=== PATIENT | female | born 1950 | race Caucasian/White ===

== ENCOUNTER 2022-06-06 12:48 | Inpatient (IN) | payer MEDICARE, MEDICAID, SELFPAY ==
--- NOTE | ~2022-06-06 | CT_ITS ---
EXAMINATION: CT HEAD WITHOUT CONTRAST CLINICAL INFORMATION: Altered mental status. COMPARISON: None available. TECHNIQUE: Contiguous axial imaging was performed from the skull base to vertex without intravenous administration of contrast. This CT examination was performed using dose optimization techniques as appropriate, variously including the following: *Automated exposure control. *Adjustment of mA and/or kV according to patient size (this includes techniques or standardized protocols for targeted exams where dose is matched to indication/reason for exam; i.e. extremities or head). *Use of iterative reconstruction technique. DLP: 654 mGy-cm FINDINGS: There is no evidence of acute intracranial hemorrhage or edematous territorial infarction. Chavez-white matter differentiation is preserved. A few foci of hypoattenuation in the periventricular and deep white matter are consistent with mild microangiopathy. Proportional prominence of the ventricles and sulcal spaces without evidence of obstructive hydrocephalus. No abnormal mass effect or midline shift. No extra-axial fluid collections. No acute soft tissue or osseous abnormalities. Small (0.7 cm) osteoma along the outer table of the high frontal bone. Mild mucosal thickening of the paranasal sinuses. Moderate leftward nasal septal deviation. The mastoid air cells and middle ear cavities are clear. Bilateral lens extractions. CT/CT head/brain wo IV con IMPRESSION: 1. No evidence of acute intracranial hemorrhage or edematous territorial infarction. 2. Mild underlying microangiopathy and generalized cerebral volume loss.
--- NOTE | ~2022-06-06 | US_ITS ---
EXAMINATION: US VENOUS ULTRASOUND WITH DOPPLER LOWER EXTREMITY, BILATERAL CLINICAL INFORMATION: Bilateral lower extremity swelling. COMPARISON: None TECHNIQUE: Ultrasound of the deep veins is performed from the hip to the calf with compression sonography and color and pulse Doppler assessment. Spectral analysis with color-flow imaging is performed. FINDINGS: RIGHT: There is normal venous compression and respiratory variation and augmented flow. The visualized common femoral vein, superficial femoral vein, profunda femoral vein, popliteal vein, and the trifurcation region shows no evidence of deep venous thrombosis. LEFT: There is normal venous compression and respiratory variation and augmented flow. The visualized common femoral vein, superficial femoral vein, profunda femoral vein, popliteal vein, and the trifurcation region shows no evidence of deep venous thrombosis. If the patient's symptoms persist, followup ultrasound in 5 days 7 days might be of value to exclude proximal propagation from a non-visualized calf vein. US/US venous duplex LE BI IMPRESSION: No DVT demonstrated in the bilateral lower extremities.
--- OUTSIDE RECORDS SUMMARY | 2022-06-06 13:25 | XMS_ITS | Continuity of Care Document ---
:1950 Author Organization [facility] Address [address] [place] [id number]- Care Team Providers Name Role Phone Danelle Husain Primary Care Physician Encounter [facility] [place] Date(s): 05/27/22 - 05/28/[address] [address]- Encounter Diagnosis Dementia, old age (Final) - 05/27/22 Dementia, old age (Final) - 05/27/22 Discharge Disposition: A-D/C Home Attending Physician: Mayelin Castle MD Admitting Physician: Mayelin Castle MD Referring Physician: Not on Staff, Referring MD Allergies, Adverse Reactions, Alerts Substance Reaction Severity Status morphine Active Red Dye1 Active 1Red foods Medications Amlodipine = 10 mg, By Mouth, Daily, 0 Refills, Maintenance, 05/07/22 19:30:00 EDT, Partial fill upon patient request if the prescription is for a schedule II opioid drug. Start Date: 05/07/22 Status: OrderedamLODIPine 10 mg oral tablet 10 mg, Tablet, By Mouth, 05/28/22 9:00:00 EDT Start Date: 05/28/22 Stop Date: 05/28/22 Status: Completedatorvastatin 80 mg oral tablet 1 tablet = 80 mg, By Mouth, Daily at bedtime, 0 Refills, Maintenance, 05/07/22 19:31:00 EDT, Partialfill upon patient request if the prescription is for a schedule II opioid drug. Start Date: 05/07/22 Status: Orderedcarvedilol 6.25 mg oral tablet 6.25 mg, 1, tablet, By Mouth, 2 times a day, # 60 tablet, Refills 0, Maintenance, 05/07/22 19:31:00 EDT, Partial fill upon patient request if the prescription is for a schedule II opioid drug. Start Date: 05/07/22 Status: Orderedcarvedilol 6.25 mg oral tablet 6.25 mg, Tablet, By Mouth, 05/28/22 9:00:00 EDT Start Date: 05/28/22 Stop Date: 05/28/22 Status: Completedcephalexin monohydrate 500 mg oral capsule 1 capsule = 500 mg, By Mouth, Every 12 hours, # 10 capsule, 0 Refills, Maintenance, 05/07/22 21:20:00 EDT, Capsule, [facility]/pharmacy #[id number], Partial fill upon patient request if the prescription is for a schedule II opioid drug., 155, cm, 05/07/22 20:58:00... Start Date: 05/07/22 Stop Date: 05/12/22 Status: Ordereddapagliflozin 10 mg oral tablet 1 tablet = 10 mg, By Mouth, Daily, # 30 tablet, 0 Refills, Maintenance, 05/07/22 19:31:00 EDT, Tablet, Partial fill upon patient request if the prescription is for a schedule II opioid drug. Start Date: 05/07/22 Status: OrderedEsomeprazole 40 mg, Daily, Refills 0, Maintenance, 05/07/22 19:34:00 EDT, Partial fill upon patient request if the prescription is for a schedule II opioid drug. Start Date: 05/07/22 Status: OrderedGabapentin = 300 mg, By Mouth, 2 times a day, 0 Refills, Maintenance, 05/07/22 19:34:00 EDT, Partial fill upon patient request if the prescription is for a schedule II opioid drug. Start Date: 05/07/22 Status: Orderedlisinopril 2.5 mg oral tablet 2.5 mg, 1, tablet, By Mouth, Daily, # 30 tablet, Refills 0, Maintenance, 05/07/22 19:34:00 EDT, Partial fill upon patient request if the prescription is for a schedule II opioid drug. Start Date: 05/07/22 Status: Orderedlisinopril 5 mg oral tablet 2.5 mg, Tablet, By Mouth, 05/28/22 9:00:00 EDT Start Date: 05/28/22 Stop Date: 05/28/22 Status: Completedmemantine 10 mg oral tablet 1 tablet = 10 mg, By Mouth, Daily, # 30 tablet, 0 Refills, Maintenance, 05/07/22 19:30:00 EDT, Tablet, Partial fill upon patient request if the prescription is for a schedule II opioid drug. Start Date: 05/07/22 Status: OrderedOzempic (1 mg dose) 4 mg/3 mL subcutaneous solution INJECT 1MG UNDER THE SKIN ONCE A WEEK. Start Date: 05/28/22 Status: OrderedOzempic (1 mg dose) 4 mg/3 mL subcutaneous solution = 1 mg, Subcutaneous Infusion, Every week, # 3 mL, 3 Refills, Maintenance, 05/28/22 17:32:00 EDT, [facility]/pharmacy #[id number], Partial fill upon patient request if the prescription is for a schedule II opioid drug., 155, cm, 05/28/22 15:20:00 EDT, Height, 60.8... Start Date: 05/28/22 Status: OrderedVicodin ES By Mouth, Every 8 hours, PRN Pain , Severe, 0 Refills, Maintenance, 05/07/22 19:33:00 EDT, Partial fill upon patient request if the prescription is for a schedule II opioid drug. Start Date: 05/07/22 Status: Ordered Vital Signs Most recent to oldest 1 2 3 4 [Reference Range]: Oxygen Saturation 100 % 100 % 98 % [94-100 %] (05/28/22 12:52 PM) (05/28/22 7:54 AM) (05/28/22 5:45 AM) Pulse Rate [55-90 bpm] 55 bpm 55 bpm 56 bpm (05/28/22 12:52 PM) (05/28/22 8:56 AM) (05/28/22 7:54 AM) Blood Pressure 111/54 mm Hg 124/55 mm Hg 124/55 mm Hg 124/55 mm Hg [90-138/55-84 mm Hg] (05/28/22 12:52 PM) (05/28/22 8:56 AM) (05/28/22 8:55 AM) (05/28/22 8:55 AM) Respiratory Rate [16-30 16 br/min 18 br/min 16 br/min br/min] (05/28/22 12:52 PM) (05/28/22 7:54 AM) (05/28/22 5:45 AM) Temperature [96.8-100.4 97.8 DegF 98.1 DegF 98.2 DegF DegF] (05/28/22 12:52 PM) (05/28/22 7:54 AM) (05/28/22 5:45 AM) Mode of Delivery Room air Room air Room air (Oxygen) (05/28/22 12:52 PM) (05/28/22 7:54 AM) (05/28/22 5:45 AM) Blood pressure sites Arm, left Arm, left Arm, left (05/28/22 12:52 PM) (05/28/22 7:54 AM) (05/28/22 5:45 AM) Temperature Route Oral Oral Oral (05/28/22 12:52 PM) (05/28/22 7:54 AM) (05/28/22 5:45 AM) Social History Social History Type Response Smoking Status 10 or more cigarettes (1/2 p ack or more)/day in last 30 days entered on: 05/07/22 Sex Patient Care team information PersonnelName: Danelle Husain Address: Address: [address] [place] [id number]
--- OUTSIDE RECORDS SUMMARY | 2022-06-06 13:25 | XMS_ITS | Continuity of Care Document ---
:1950 Author Organization [facility] Address [address] [place] [id number]- Care Team Providers Name Role Phone Not on Staff, PCP Primary Care Physician Unavailable Encounter [facility] [place] Date(s): 05/07/22 - 05/07/[address] [address]- Discharge Disposition: A-D/C Walkout Attending Physician: Not on Staff, Attending MD Admitting Physician: Not on Staff, Admitting MD Referring Physician: Not on Staff, Referring MD Allergies, Adverse Reactions, Alerts Substance Reaction Severity Status morphine Active Medications Amlodipine = 10 mg, By Mouth, Daily, 0 Refills, Maintenance, 05/07/22 19:30:00 EDT, Partial fill upon patient request if the prescription is for a schedule II opioid drug. Start Date: 05/07/22 Status: Orderedatorvastatin 80 mg oral tablet 1 tablet = [...] II opioid drug. Start Date: 05/07/22 Status: Orderedcephalexin monohydrate 500 mg oral capsule 1 capsule = 500 mg, By Mouth, Every 12 hours, # 10 capsule, 0 Refills, Maintenance, 05/07/22 21:20:00 EDT, Capsule, [facility]/pharmacy #[id number], Partial fill upon patient request if [...] II opioid drug. Start Date: 05/07/22 Status: Orderedmemantine 10 mg oral tablet 1 tablet = 10 mg, By Mouth, Daily, # 30 tablet, 0 Refills, Maintenance, 05/07/22 19:30:00 EDT, Tablet, Partial fill upon patient request if the prescription is for a schedule II opioid drug. Start Date: 05/07/22 Status: OrderedVicodin ES By Mouth, Every 8 hours, PRN Pain , Severe, 0 Refills, Maintenance, 05/07/22 19:33:00 EDT, Partial fill upon patient request if the prescription is for a schedule II opioid drug. Start Date: 05/07/22 Status: Ordered Vital Signs Most recent to oldest [Reference Range]: 1 2 Height 155 cm (05/07/22 11:46 AM) Weight 60.5 kg (05/07/22 11:46 AM) Oxygen Saturation [94-100 %] 100 % 99 % (05/07/22 11:46 AM) (05/07/22 11:32 AM) Pulse Rate [55-90 bpm] 78 bpm 72 bpm (05/07/22 11:46 AM) (05/07/22 11:32 AM) Blood Pressure [90-138/55-84 mm Hg] 130/65 mm Hg (05/07/22 11:46 AM) Respiratory Rate [16-30 br/min] 17 br/min (05/07/22 11:46 AM) Temperature [96.8-100.4 DegF] 98.7 DegF (05/07/22 11:46 AM) Mode of Delivery (Oxygen) Room air Room air (05/07/22 11:46 AM) (05/07/22 11:32 AM) Blood pressure sites Arm, left (05/07/22 11:46 AM) Temperature Route Oral (05/07/22 11:46 AM) Dry Weight 60.5 kg (05/07/22 11:46 AM) Social History Social History Type Response Smoking Status 10 or more cigarettes (1/2 p ack or more)/day in last 30 days entered on: 05/07/22 Sex Care Team PersonnelName: Not on Staff, PCP
--- OUTSIDE RECORDS SUMMARY | 2022-06-06 13:25 | XMS_ITS | Continuity of Care Document ---
:1950 Author [address] [facility] Address [address] [place] [address]- Care Team Providers Name Role Phone Danelle Husain Primary Care Physician Encounter [facility] [place] Date(s): 05/03/22 - 06/02/[address] [facility] [address] [place] [id number]- Allergies, Adverse Reactions, Alerts Substance Reaction Severity Status morphine Active Red Dye1 Active 1Red foods Medications Amlodipine = 10 mg, By Mouth, Daily, 0 Refills, Maintenance, 05/07/22 19:30:00 EDT, Partial fill upon patient request if the prescription is for a schedule II opioid drug. Start Date: 05/07/22 Status: OrderedamLODIPine 10 mg oral tablet 1 tablet = 10 mg, By Mouth, Daily, TAKE ONE (1) TABLET(S) BY MOUTH ONCE A DAY. Start Date: 05/29/22 Status: Orderedatorvastatin 80 mg oral tablet 1 [...] tablet, By Mouth, 2 times a day, TAKE ONE (1) TABLET(S) BY MOUTH TWICE A DAY WITH FOOD. Start Date: 05/29/22 Status: Orderedcephalexin monohydrate 500 mg oral capsule 1 capsule = 500 mg, By Mouth, Every 12 hours, # 10 capsule, 0 Refills, Maintenance, 05/07/22 21:20:00 EDT, Capsule, [facility]/pharmacy #[id number], Partial fill upon patient request if [...] II opioid drug. Start Date: 05/07/22 Status: Orderedesomeprazole 40 mg oral enteric coated capsule 1 capsule = 40 mg, By Mouth, Daily, TAKE ONE (1) CAPSULE(S) BY MOUTH ONCE A DAY FOR STOMACH. Start Date: 05/29/22 Status: OrderedFarxiga 10 mg oral tablet 1 tablet = 10 mg, By Mouth, Daily, TAKE ONE (1) TABLET(S) BY MOUTH ONCE A DAY. Start Date: 05/29/22 Status: OrderedGabapentin = 300 mg, By Mouth, 2 times a day, 0 Refills, Maintenance, 05/07/22 19:34:00 EDT, Partial fill upon patient request if the prescription is for a schedule II opioid drug. Start Date: 05/07/22 Status: Orderedgabapentin 300 mg oral capsule 300 mg, 1, capsule, By Mouth, 2 times a day, TAKE ONE (1) CAPSULE(S) BY MOUTH TWICE A DAY DIRECTED. Start Date: 05/29/22 Status: Orderedlisinopril 2.5 mg oral tablet 2.5 mg, 1, tablet, By Mouth, Daily, # 30 tablet, Refills 0, Maintenance, 05/07/22 19:34:00 EDT, Partial fill upon patient request if the prescription is for a schedule II opioid drug. Start Date: 05/07/22 Status: Orderedlisinopril 2.5 mg oral tablet 2.5 mg, 1, tablet, By Mouth, Daily, TAKE ONE (1) TABLET(S) BY MOUTH ONCE A DAY. Start Date: 05/29/22 Status: Orderedmemantine 10 mg oral tablet 1 tablet = 10 mg, By Mouth, Daily, # 30 tablet, 0 Refills, Maintenance, 05/07/22 19:30:00 EDT, Tablet, Partial fill upon patient request if the prescription is for a schedule II opioid drug. Start Date: 05/07/22 Status: Orderedmemantine 10 mg oral tablet 1 tablet = 10 mg, By Mouth, Daily, TAKE ONE (1) TABLET(S) BY MOUTH ONCE A DAY. Start Date: 05/29/22 Status: OrderedOzempic (1 mg dose) 4 mg/3 mL subcutaneous solution INJECT 1MG UNDER THE SKIN ONCE A WEEK. Start Date: 05/28/22 Status: OrderedOzempic (1 mg dose) 4 mg/3 mL subcutaneous solution = 1 mg, Subcutaneous Infusion, Every week, # 3 mL, 3 Refills, Maintenance, 05/28/22 17:32:00 EDT, [facility]/pharmacy #[id number], Partial fill upon patient request if [...] opioid drug. Start Date: 05/07/22 Status: Ordered Social History Social History Type Response Smoking Status 10 or more cigarettes (1/2 p ack or more)/day in last 30 days entered on: 05/07/22 Sex Patient Care team information PersonnelName: Danelle Husain Address: Address: [address] [place] [address]
[2022-06-06 13:30] VITALS: BP 102/52; PULSE 55; RESP 18; TEMP 36.9; O2SAT 97
[2022-06-06 14:00] VITALS: BMI 25.3
--- NOTE | 2022-06-06 16:53 | P.CONHOSP_ITS ---
History of Present Illness Data of Consult Service Date: 06/06/22 Requesting physician: Stevan Soriano Primary Care Provider: Unknown Physician HPI Reason for consult: medical h&p 71-year-old female with history of hypertension and diet-controlled type 2 diabetes admitted to Psychiatry for supposedly dementia and delusions. Her only complaint today is sadness being on the unit as she does not feel she warrants admission. She also reports chronic pain in the left leg status post low back surgery in 2013. Describes intermittent pain for which she uses ibuprofen and Tylenol at home with moderate relief. She ambulates with a walker at baseline. Review of Systems Review of Systems: General: No fevers, malaise, unintentional weight loss Cardiovascular: No chest pain, palpitations, or leg edema Respiratory: No shortness of breath, wheezing, cough GI: No abdominal pain, nausea, vomiting, diarrhea, constipation, melena, hematochezia : No dysuria, hematuria, increased frequency MSK: +pain LLE Neuro: No headaches, weakness, paresthesias Skin: No rashes or lesions PMFSH Medical History (Updated 06/06/22 @ 16:56 by ISSA Byrnes) Chronic pain of left lower extremity Diet-controlled type 2 diabetes mellitus Hypertension Family History (Updated 06/06/22 @ 16:56 by ISSA Byrnes) Brother Diabetes Cancer Mother Diabetes Surgical History (Updated 06/06/22 @ 16:56 by ISSA Byrnes) History of lumbar surgery Social History Household Members: Family Housing: House Do you presently have visiting nurse or other home services: No ( I was but my daughter sent her home and I had no one to walk with. ) Patient Tobacco Use Status: Current someday Tobacco user Tobacco use type: Cigarette Cigarettes Per Day: 2 Years Smoked: 58 Smoked in Last 30 Days: Yes e-Cigarette/Vaping Use: Never Used Patient Interested in Nicotine Replacement: No Patient Given Instructions on How to Stop Smoking: No (Will be referred to respiratory.) Use of substances other than those prescribed or required for medical reasons: No Currently Displaying Signs/Symptoms of Drug Intoxication Withdrawal: No Any prior treatment program specific to substance use: No Have you been hit, kicked, punched, or otherwise hurt by someone within the past year? If so, by whom?: No Do you feel safe in your current relationship?: No Current Relationship Is there a partner from a previous relationship who is making you feel unsafe now?: No Are you made to feel afraid or neglected: No Spiritual Healthcare Practices: no Mosque Healthcare Practices: no Cultural Healthcare Practices: no Advance Directives: Yes Advance Directives Information Provided: Yes Advance Directives on File: No Do you have thoughts of harming others: None Do you have a plan to hurt others: No Plan Recently lost weight without trying: No Eating poorly because of decreased appetite: No Nutrition Risks: No Nutritional Risk Patient : No : No Poor oral hygiene: No Meds Allergies Allergy/AdvReac Type Severity Reaction Status Date / Time Unable to Assess Allergy Unverified 06/06/22 13:17 Active Medications: Current Medications Acetaminophen (Acetaminophen 325 Mg Tablet) 650 mg PO Q6H PRN PRN Reason: Headache/Pain Mild Scale (1-3) Al Hydroxide/Mg Hydroxide (Magnesium Hydrox/Alum Hydrox 30 Ml Oral.Susp) 30 ml PO Q6H PRN PRN Reason: Heartburn/Nausea Hydroxyzine HCl (Hydroxyzine Hcl 25 Mg Tablet) 25 mg PO Q6H PRN PRN Reason: Anxiety Magnesium Hydroxide (Milk Of Magnesia 30 Ml Oral.Susp) 30 ml PO DAILY PRN PRN Reason: Constipation Trazodone HCl (Trazodone Hcl 50 Mg Tablet) 50 mg PO BEDTIME PRN PRN Reason: Insomnia Physical Exam Vital Signs and Narrative: Vital Signs: Last Vital Signs Temp 98.5 F 06/06/22 13:30 Pulse 55 06/06/22 13:30 Resp 18 06/06/22 13:30 BP 102/52 L 06/06/22 13:30 Pulse Ox 97 06/06/22 13:30 O2 Del Method 06/06/22 13:30 BMI result Body Mass Index 25.3 Constitutional - Awake and Alert, No apparent distress Eyes - PERRLA, EOMI Cardiovascular - S1S2, RRR, No edema Respiratory - Normal lung expansion, Normal respiratory effort, No respiratory distress, CTA bilaterally Gastrointestinal - NT / ND; +BS; No rebound or guarding Extremities - no calf tenderness bilaterally, no swelling Skin - Warm/Dry Neurological - Alert & oriented x3, Lucid on exam. CN II-XII in tact, 5/5 strength BUE and BLE Psychological - Appropriate affect Assessment and Plan (1) Chronic pain of left lower extremity: Status: Acute (2) Diet-controlled type 2 diabetes mellitus: Status: Acute (3) Hypertension: Status: Acute Plan 71-year-old female with history of hypertension and diet-controlled type 2 diabetes admitted to Psychiatry for supposedly dementia and delusions with consult placed for medical H&P. 1- Dementia/delusion per ED notes from [facility] -Patient lucid on exam and affect seems appropriate. -Plan per psychiatry 9-Igun-rwcxwaopfa type 2 diabetes -A1c 5.7% in ED -Diabetic diet -POC glucose -Humalog SSI prn for hyperglycemia 3-CKD stage 3 likely secondary to diabetes -Stable. Cr 1.2, BUN 30, GFR 48 4-HTN- per [facility] ED, not on any meds -BP low normal -Follow vitals. 5-Chronic pain LLE s/p lumbar surgery 2012 -Ibuprofen or tylenol prn -Needs outpt follow up Thank you for allowing me to participate in this consult. Signing off at this time. Please do not hesitate to call for further questions.
--- NOTE | 2022-06-06 16:55 | HO.PSYADMNOT ---
HPI Date of Service: 06/06/22 Chief Complaint: Adjustment Disorders Sources of Information: patient interviewed, chart reviewed and crisis/core team assessment reviewed HPI Subjective Notes: Rothman Warning and Conditional Voluntary Narrative: The patient is a 71-year-old descent female, living with her daughter, recently moved from [place] to [place] since February 2022, currently retired, transferred from [facility] for continuation of treatment. As per the crisis report, the patient had been confused and wandering out of the home of her daughter. As per the report of crisis, she has been confused at times, with poor short term memory and disorganized. On interview, the patient reported that she has been more dysphoric since she moved out of [place] with depressed mood, anhedonia, poor sleep and anxiety. She states that she smokes tobacco and sometimes she goes for walks to calm herself. She stated that she has had verbal altercations with her daughter and finally, her daughter called crisis due to possible dementia. She adamantly denies suicidal ideation, homicidal thoughts or unsafe behaviors. She denied hector or psychosis. Past Psychiatric History: Denies Medical Evaluation Reviewed: Hospitalist Angel Luis Lizamaing [facility] Medical History Chronic pain of left lower extremity Diet-controlled type 2 diabetes mellitus Hypertension Surgical History History of lumbar surgery Family History: Denies Social History: The patient was born in [place], she has lived in [place] most of her life. She has adult children and recently she moved from [place] to [place] 3 months before. She has good social support. Substance History: Denies Trauma History: Unknown Diagnostics Vital Signs (24Hr): Vital Signs - 24 hr 06/06/22 13:30 Temperature 98.5 F Pulse Rate 55 Respiratory Rate 18 Blood Pressure 102/52 L Pulse Oximetry 97 Oxygen Delivery Method Room Air BMI result Body Mass Index 25.3 Meds/Allergies Allergies Allergies Allergy/AdvReac Type Severity Reaction Status Date / Time Unable to Assess Allergy Unverified 06/06/22 13:17 Mental Status Exam Mental Status Exam Patient Appearance: Appropriate Patient Orientation: Person and Situation Level of Consciousness: Awake Patient Behavior: Cooperative and Fatigued Mood Description: Withdrawn and Depressed Affect Description: Constricted Patient Cognition Impaired: Yes Ability to Follow Directions: Good Speech Pattern: Clear Hallucinations: None Delusions: Not Present Thought Process: Distracted and Confusion Thought Content: positive for Bethany and positive for Circumstantial Judgement: Fair Assessment & Plan Assessment & Plan (1) Diet-controlled type 2 diabetes mellitus: Status: Acute Code(s): E11.9 - Type 2 diabetes mellitus without complications (2) Hypertension: Status: Acute Code(s): I10 - Essential (primary) hypertension (3) Depression: Status: Acute Code(s): F32.A - Depression, unspecified (4) Cognitive and behavioral changes: Status: Acute Code(s): R41.89 - Other symptoms and signs involving cognitive functions and awareness; R46.89 - Other symptoms and signs involving appearance and behavior Plan The patient is an elderly female, recently moved from [place] to [place] transfer from [facility] sings she had cognitive impairment and recently feeling depressed. At this moment, we do not have collateral information but she denies active suicidal ideation or psychotic symptoms. Plan 1. Gather collateral information. 2. CBC with differential, basic metabolic panel, lipid profile, vitamin B12, folate and other medical workout. 3. Urinalysis. 4. CT scan head . 5. Start Remeron 7.5 mg p.o. q.h.s. to target dysphoria Patient educated on: diagnosis and therapeutic strategies Reason for continued inpatient stay Substantial Risk for: inability to function, rapid decompensation and med/psych decompensation
[2022-06-06 18:00] VITALS: BP 138/58; PULSE 60; RESP 18; TEMP 37.1; O2SAT 98
--- NOTE | 2022-06-06 18:18 | PC.ADMIT ---
Pt. arrived on unit 1320 accompanied by 2 automobile damage field appraiser via stretcher from [facility] for adjustment disorder. Pt. alert and oriented X 3-denies situation as presented by daughter and in crisis eval. Pt. had lived independently in [place] up until 2.5 months ago, when she moved in with her daughter locally. Per crisis eval pt. had been wandering unsafely outside of home. Ambulates independently with walker. Pleasant and cooperative with admission process, but denies any psych sx. or cognitive problems. Focuses that daughter is accusatory toward her and thinks everything she does is wrong. Denies AH/VH/SI/HI, depression or anxiety. Carries dx. of HTN, diet controlled DM, and LLE pain. Signed release of info for daughter, who came to unit entrance and was updated on admission. Daughter brought FREEMAN an medical records, which were received and copied by social work manager.
[2022-06-06] MEDS: OLANZapine 2.5 MG TABLET PO (21:36)
[2022-06-06] MEDS: Atorvastatin Calcium 80 MG TABLET PO (21:36)
[2022-06-06] MEDS: carvediloL 6.25 MG TABLET PO (21:36)
[2022-06-06] MEDS: Gabapentin 300 MG CAPSULE PO (21:37)
[2022-06-06] MEDS: traZODone HCL 50 MG TABLET PO (21:37)
[2022-06-06] MEDS: Memantine HCl 10 MG TABLET PO (21:57)
[2022-06-07 07:30] VITALS: BP 117/56; PULSE 52; RESP 17; TEMP 36.5; O2SAT 96
[2022-06-07] MEDS: Omeprazole 20 MG CAPSULE.DR PO (08:21)
[2022-06-07] MEDS: Empagliflozin 10 MG TABLET PO (08:21)
[2022-06-07] MEDS: Gabapentin 300 MG CAPSULE PO ×2 (08:22→20:26)
[2022-06-07] MEDS: carvediloL 6.25 MG TABLET PO ×2 (08:22→20:26)
[2022-06-07] MEDS: lisinopriL 2.5 MG TABLET PO (08:22)
[2022-06-07 08:24] LABS: MANUAL DIFF FLAG NO
[2022-06-07 08:33] LABS: Basophils Absolute Auto 0.1 X10*3/uL (0.0-0.2); Basophils Percent Auto 0.8 % (0-2); Eosinophils Absolute Auto 0.3 X10*3/uL (0.0-0.4); Eosinophils Percent Auto 4.3 % (0-4); Hematocrit 36.4 % (37.0-47.0); Hemoglobin 12.1 g/dl (12.0-16.0); Imm Gran Abs Auto 0.01 X10*3/uL (0.00-0.03); Imm Gran Pct Auto 0.2 % (0.0-0.4); Lymphocytes Absolute Auto 2.2 X10*3/uL (1.2-4.9); Lymphocytes Percent Auto 33.3 % (20-40); Mean Corpuscular HGB Conc 33.2 g/dl (31.0-35.0); Mean Corpuscular Hemoglobin 31.9 pg (27.0-33.0); Mean Platelet Volume 9.5 fL (9.4-12.3); Monocytes Absolute Auto 0.6 X10*3/uL (0.1-1.2); Monocytes Percent Auto 8.5 % (2-11); Neutrophils Absolute Auto 3.4 x10*3/uL (2.0-8.3); Neutrophils Percent Auto 52.9 % (45-73); Platelet Count 235 X10*3/uL (160-400); Red Blood Count 3.79 X10*6/uL (4.20-5.50); Red Cell Distribution Width 13.3 % (11.0-16.0); White Blood Count 6.5 X10*3/uL (4.8-10.8)
[2022-06-07 08:41] LABS: Estimated Average Glucose 117 mg/dL; Hemoglobin A1c % 5.7 %
[2022-06-07 09:09] LABS: Alanine Aminotransferase 18 U/L (0-31); Albumin Level 3.7 g/dL (3.5-5.0); Alkaline Phosphatase 87 U/L (39-117); Anion Gap 15 (12-20); Aspartate Amino Transferase 16 U/L (5-31); Bilirubin Total 0.3 mg/dL (0.0-1.0); Blood Urea Nitrogen 44 mg/dL (9-16); Calcium 9.2 mg/dL (8.4-10.2); Carbon Dioxide 25 mmol/L (22-29); Chloride 106 mmol/L (96-108); Cholesterol 177 mg/dL; Estimated Glomerular Filt Rate 42; Glucose Fasting 126 mg/dL (60-99); HDL Cholesterol 42 mg/dL; LDL Cholesterol Calculated 118 mg/dl; Potassium 4.5 mmol/L (3.3-5.1); Sodium 141 mmol/L (135-145); Total Protein 6.4 g/dL (6.5-8.0); Triglycerides 86 mg/dL
[2022-06-07 09:25] LABS: Thyroid Stimulating Hormone 0.59 uIU/mL (0.32-4.0)
[2022-06-07 09:54] LABS: Folate 8.3 ng/mL (> or = 4.0); Vitamin B12 386 pg/mL (200-900)
[2022-06-07] MEDS: Acetaminophen 325 MG TABLET 650 MG PO (10:29)
--- NOTE | 2022-06-07 13:52 | HO.PSYCHPN ---
Subjective Subjective Date of Service: 06/07/22 Reason For Visit: Adjustment Disorders Subjective Notes: Conditional Voluntary Interim History: The nursing staff reported the patient has being dysphoric but easily redirectable. On interview the patient denies new symptoms she complains regarding her relation with her daughter. Mental Status Exam Mental Status Exam Patient Appearance: Well Grooomed Patient Orientation: Person, Place and Situation Level of Consciousness: Awake and Appropriate Patient Behavior: Cooperative Mood Description: Withdrawn Affect Description: Constricted Patient Cognition Impaired: Yes Ability to Follow Directions: Good Speech Pattern: Clear Hallucinations: None Delusions: Not Present Thought Process: Linear Thought Content: positive for [place] Judgement: Fair Diagnostics Vital Signs (24Hr): Vital Signs - 24 hr 06/06/22 18:00 06/06/22 18:00 06/07/22 07:30 Temperature 98.7 F 98.7 F 97.7 F Pulse Rate 60 60 52 Respiratory Rate 18 18 17 Blood Pressure 138/58 L 138/58 L 117/56 L Pulse Oximetry 98 98 96 Oxygen Delivery Method Room Air Room Air Room Air BMI result Body Mass Index 25.3 Labs Results: 06/07/22 08:01 06/07/22 08:01 Labs: Laboratory Results - last 48 hr 06/07/22 06/07/22 06/07/22 08:01 08:01 08:01 WBC RBC Hgb Hct MCV MCH MCHC RDW Plt Count MPV Immature Gran % (Auto) Neut % (Auto) Lymph % (Auto) [place] % (Auto) Eos % (Auto) Baso % (Auto) Lymph # (Auto) [place] # (Auto) Eos # (Auto) Baso # (Auto) Abs Immat Gran (auto) Absolute Neuts (auto) Absolute Nucleated RBC Nucleated RBC % (auto) Sodium 141 Potassium 4.5 Chloride 106 Carbon Dioxide 25 Anion Gap 15 BUN 44 H Creatinine 1.25 Estim Creat Clear Calc 34.0 Estimated GFR 42 Fasting Glucose 126 H Estimat Average Glucose 117 Hemoglobin A1c % 5.7 Calcium 9.2 Total Bilirubin 0.3 AST 16 ALT 18 Alkaline Phosphatase 87 Total Protein 6.4 L Albumin 3.7 Triglycerides 86 Cholesterol 177 LDL Cholesterol, Calc 118 HDL Cholesterol 42 Vitamin B12 386 Folate 8.3 TSH 06/07/22 06/07/22 08:01 08:01 WBC 6.5 RBC 3.79 L Hgb 12.1 Hct 36.4 L MCV 96.0 MCH 31.9 MCHC 33.2 RDW 13.3 Plt Count 235 MPV 9.5 Immature Gran % (Auto) 0.2 Neut % (Auto) 52.9 Lymph % (Auto) 33.3 [place] % (Auto) 8.5 Eos % (Auto) 4.3 H Baso % (Auto) 0.8 Lymph # (Auto) 2.2 [place] # (Auto) 0.6 Eos # (Auto) 0.3 Baso # (Auto) 0.1 Abs Immat Gran (auto) 0.01 Absolute Neuts (auto) 3.4 Absolute Nucleated RBC 0.000 Nucleated RBC % (auto) 0.0 Sodium Potassium Chloride Carbon Dioxide Anion Gap BUN Creatinine Estim Creat Clear Calc Estimated GFR Fasting Glucose Estimat Average Glucose Hemoglobin A1c % Calcium Total Bilirubin AST ALT Alkaline Phosphatase Total Protein Albumin Triglycerides Cholesterol LDL Cholesterol, Calc HDL Cholesterol Vitamin B12 Folate TSH 0.59 Imaging Radiology Impressions: ITS Impressions Head CT 06/07/22 11:17 IMPRESSION: 1. No evidence of acute intracranial hemorrhage or edematous territorial infarction. 2. Mild underlying microangiopathy and generalized cerebral volume loss. Medications Medications Current Medications Acetaminophen (Acetaminophen 325 Mg Tablet) 650 mg PO Q6H PRN PRN Reason: Headache/Pain Mild Scale (1-3) Last Admin: 06/07/22 10:29 Dose: 650 mg Al Hydroxide/Mg Hydroxide (Magnesium Hydrox/Alum Hydrox 30 Ml Oral.Susp) 30 ml PO Q6H PRN PRN Reason: Heartburn/Nausea Atorvastatin Calcium (Atorvastatin Calcium 80 Mg Tablet) 80 mg PO BEDTIME [facility] Last Admin: 06/06/22 21:36 Dose: 80 mg Carvedilol (Carvedilol 6.25 Mg Tablet) 6.25 mg PO BID [facility] Last Admin: 06/07/22 08:22 Dose: 6.25 mg Empagliflozin (Empagliflozin 10 Mg Tablet) 10 mg PO DAILY [facility] Last Admin: 06/07/22 08:21 Dose: 10 mg Gabapentin (Gabapentin 300 Mg Capsule) 300 mg PO BID [facility] Last Admin: 06/07/22 08:22 Dose: 300 mg Hydroxyzine HCl (Hydroxyzine Hcl 25 Mg Tablet) 25 mg PO Q6H PRN PRN Reason: Anxiety Lisinopril (Lisinopril 2.5 Mg Tablet) 2.5 mg PO DAILY [facility]; Protocol Last Admin: 06/07/22 08:22 Dose: 2.5 mg Magnesium Hydroxide (Milk Of Magnesia 30 Ml Oral.Susp) 30 ml PO DAILY PRN PRN Reason: Constipation Memantine (Memantine Hcl 10 Mg Tablet) 10 mg PO BEDTIME [facility] Last Admin: 06/06/22 21:57 Dose: 10 mg Mirtazapine (Mirtazapine 7.5 Mg Tablet) 7.5 mg PO BEDTIME [facility] Olanzapine (Olanzapine 2.5 Mg Tablet) 2.5 mg PO BEDTIME [facility] Last Admin: 06/06/22 21:36 Dose: 2.5 mg Olanzapine (Olanzapine 2.5 Mg Tablet) 2.5 mg PO TID PRN PRN Reason: Agitation Omeprazole (Omeprazole 20 Mg Capsule.Dr) 20 mg PO DAILY@0630 [facility] Last Admin: 06/07/22 08:21 Dose: 20 mg Trazodone HCl (Trazodone Hcl 50 Mg Tablet) 50 mg PO BEDTIME PRN PRN Reason: Insomnia Last Admin: 06/06/22 21:37 Dose: 50 mg Allergies Allergies Allergy/AdvReac Type Severity Reaction Status Date / Time Unable to Assess Allergy Unverified 06/06/22 13:17 Assessment & Plan Assessment & Plan (1) Diet-controlled type 2 diabetes mellitus: Status: Acute Code(s): E11.9 - Type 2 diabetes mellitus without complications (2) Hypertension: Status: Acute Code(s): I10 - Essential (primary) hypertension (3) Depression: Status: Acute Code(s): F32.A - Depression, unspecified (4) Cognitive and behavioral changes: Status: Acute Code(s): R41.89 - Other symptoms and signs involving cognitive functions and awareness; R46.89 - Other symptoms and signs involving appearance and behavior Plan The patient is an elderly female, recently moved from [place] to [place] transfer from [facility] sings she had cognitive impairment and recently feeling depressed. At this moment, we do not have collateral information but she denies active suicidal ideation or psychotic symptoms. Plan 1. Gather collateral information. 2. CBC with differential, basic metabolic panel, lipid profile, vitamin B12, folate and other medical workout. 3. Urinalysis. 4. CT scan head . 5. Start Remeron 7.5 mg p.o. q.h.s. to target dysphoria I spent __20____ minutes with the patient and/or on the patient floor today, greater than?50% of which was spent counseling/coordinating care. Reason for contiued inpatient stay Substantial Risk for: inability to function, rapid decompensation and med/psych decompensation
[2022-06-07 18:00] VITALS: BP 146/62; PULSE 73; RESP 18; TEMP 36.9; O2SAT 97
[2022-06-07] MEDS: Atorvastatin Calcium 80 MG TABLET PO (20:25)
[2022-06-07] MEDS: Mirtazapine 7.5 MG TABLET PO (20:26)
[2022-06-07] MEDS: OLANZapine 2.5 MG TABLET PO (20:26)
[2022-06-07] MEDS: Memantine HCl 10 MG TABLET PO (20:26)
[2022-06-08] MEDS: Acetaminophen 325 MG TABLET 650 MG PO ×2 (01:29→14:56)
[2022-06-08] MEDS: Omeprazole 20 MG CAPSULE.DR PO (06:15)
[2022-06-08 08:30] VITALS: BP 125/60; PULSE 67; RESP 17
[2022-06-08] MEDS: lisinopriL 2.5 MG TABLET PO (09:09)
[2022-06-08] MEDS: carvediloL 6.25 MG TABLET PO ×2 (09:09→20:18)
[2022-06-08] MEDS: Gabapentin 300 MG CAPSULE PO ×2 (09:09→20:18)
[2022-06-08] MEDS: Empagliflozin 10 MG TABLET PO (09:10)
--- NOTE | 2022-06-08 12:00 | HO.PSYCHPN ---
Subjective Subjective Date of Service: 06/08/22 Reason For Visit: Adjustment Disorders Interim History: calm, cooperative. watching TV. pleasant, expressive. seems to feel it is a mistake that she is here and expects her daughter to come and take her from the hospital soon. no complaints or requests. per staff, denies depression, endorses anxiety 06/03. eating, pleasant. Mental Status Exam Mental Status Exam Patient Appearance: Well Grooomed Patient Orientation: Person, Place and Situation Level of Consciousness: Awake and Appropriate Patient Behavior: Cooperative Affect Description: Happy and Relaxed Patient Cognition Impaired: Yes Ability to Follow Directions: Good Speech Pattern: Clear Hallucinations: None Delusions: Not Present Thought Process: Linear Thought Content: positive for [place] Judgement: Fair Diagnostics Vital Signs (24Hr): Vital Signs - 24 hr 06/07/22 18:00 06/08/22 08:30 Temperature 98.4 F Pulse Rate 73 67 Respiratory Rate 18 17 Blood Pressure 146/62 H 125/60 Pulse Oximetry 97 Oxygen Delivery Method Room Air BMI result Body Mass Index 25.3 Labs Results: 06/07/22 08:01 06/07/22 08:01 Labs: Laboratory Results - last 48 hr 06/07/22 06/07/22 06/07/22 08:01 08:01 08:01 WBC RBC Hgb Hct MCV MCH MCHC RDW Plt Count MPV Immature Gran % (Auto) Neut % (Auto) Lymph % (Auto) [place] % (Auto) Eos % (Auto) Baso % (Auto) Lymph # (Auto) [place] # (Auto) Eos # (Auto) Baso # (Auto) Abs Immat Gran (auto) Absolute Neuts (auto) Absolute Nucleated RBC Nucleated RBC % (auto) Sodium 141 Potassium 4.5 Chloride 106 Carbon Dioxide 25 Anion Gap 15 BUN 44 H Creatinine 1.25 Estim Creat Clear Calc 34.0 Estimated GFR 42 Fasting Glucose 126 H Estimat Average Glucose 117 Hemoglobin A1c % 5.7 Calcium 9.2 Total Bilirubin 0.3 AST 16 ALT 18 Alkaline Phosphatase 87 Total Protein 6.4 L Albumin 3.7 Triglycerides 86 Cholesterol 177 LDL Cholesterol, Calc 118 HDL Cholesterol 42 Vitamin B12 386 Folate 8.3 TSH 06/07/22 06/07/22 08:01 08:01 WBC 6.5 RBC 3.79 L Hgb 12.1 Hct 36.4 L MCV 96.0 MCH 31.9 MCHC 33.2 RDW 13.3 Plt Count 235 MPV 9.5 Immature Gran % (Auto) 0.2 Neut % (Auto) 52.9 Lymph % (Auto) 33.3 [place] % (Auto) 8.5 Eos % (Auto) 4.3 H Baso % (Auto) 0.8 Lymph # (Auto) 2.2 [place] # (Auto) 0.6 Eos # (Auto) 0.3 Baso # (Auto) 0.1 Abs Immat Gran (auto) 0.01 Absolute Neuts (auto) 3.4 Absolute Nucleated RBC 0.000 Nucleated RBC % (auto) 0.0 Sodium Potassium Chloride Carbon Dioxide Anion Gap BUN Creatinine Estim Creat Clear Calc Estimated GFR Fasting Glucose Estimat Average Glucose Hemoglobin A1c % Calcium Total Bilirubin AST ALT Alkaline Phosphatase Total Protein Albumin Triglycerides Cholesterol LDL Cholesterol, Calc HDL Cholesterol Vitamin B12 Folate TSH 0.59 Imaging Radiology Impressions: ITS Impressions Head CT 06/07/22 11:17 IMPRESSION: 1. No evidence of acute intracranial hemorrhage or edematous territorial infarction. 2. Mild underlying microangiopathy and generalized cerebral volume loss. Medications Medications Current Medications Acetaminophen (Acetaminophen 325 Mg Tablet) 650 mg PO Q6H PRN PRN Reason: Headache/Pain Mild Scale (1-3) Last Admin: 06/08/22 01:29 Dose: 650 mg Al Hydroxide/Mg Hydroxide (Magnesium Hydrox/Alum Hydrox 30 Ml Oral.Susp) 30 ml PO Q6H PRN PRN Reason: Heartburn/Nausea Atorvastatin Calcium (Atorvastatin Calcium 80 Mg Tablet) 80 mg PO BEDTIME [facility] Last Admin: 06/07/22 20:25 Dose: 80 mg Carvedilol (Carvedilol 6.25 Mg Tablet) 6.25 mg PO BID [facility] Last Admin: 06/08/22 09:09 Dose: 6.25 mg Empagliflozin (Empagliflozin 10 Mg Tablet) 10 mg PO DAILY [facility] Last Admin: 06/08/22 09:10 Dose: 10 mg Gabapentin (Gabapentin 300 Mg Capsule) 300 mg PO BID [facility] Last Admin: 06/08/22 09:09 Dose: 300 mg Hydroxyzine HCl (Hydroxyzine Hcl 25 Mg Tablet) 25 mg PO Q6H PRN PRN Reason: Anxiety Lisinopril (Lisinopril 2.5 Mg Tablet) 2.5 mg PO DAILY [facility]; Protocol Last Admin: 06/08/22 09:09 Dose: 2.5 mg Magnesium Hydroxide (Milk Of Magnesia 30 Ml Oral.Susp) 30 ml PO DAILY PRN PRN Reason: Constipation Memantine (Memantine Hcl 10 Mg Tablet) 10 mg PO BEDTIME [facility] Last Admin: 06/07/22 20:26 Dose: 10 mg Mirtazapine (Mirtazapine 7.5 Mg Tablet) 7.5 mg PO BEDTIME [facility] Last Admin: 06/07/22 20:26 Dose: 7.5 mg Olanzapine (Olanzapine 2.5 Mg Tablet) 2.5 mg PO BEDTIME [facility] Last Admin: 06/07/22 20:26 Dose: 2.5 mg Olanzapine (Olanzapine 2.5 Mg Tablet) 2.5 mg PO TID PRN PRN Reason: Agitation Omeprazole (Omeprazole 20 Mg Capsule.Dr) 20 mg PO DAILY@0630 [facility] Last Admin: 06/08/22 06:15 Dose: 20 mg Trazodone HCl (Trazodone Hcl 50 Mg Tablet) 50 mg PO BEDTIME PRN PRN Reason: Insomnia Last Admin: 06/06/22 21:37 Dose: 50 mg Allergies Allergies Allergy/AdvReac Type Severity Reaction Status Date / Time Unable to Assess Allergy Unverified 06/06/22 13:17 Assessment & Plan Assessment & Plan (1) Diet-controlled type 2 diabetes mellitus: Status: Acute Code(s): E11.9 - Type 2 diabetes mellitus without complications (2) Hypertension: Status: Acute Code(s): I10 - Essential (primary) hypertension (3) Depression: Status: Acute Code(s): F32.A - Depression, unspecified (4) Cognitive and behavioral changes: Status: Acute Code(s): R41.89 - Other symptoms and signs involving cognitive functions and awareness; R46.89 - Other symptoms and signs involving appearance and behavior Plan The patient is an elderly female, recently moved from [place] to [place] transfer from [facility] sings she had cognitive impairment and recently feeling depressed. At this moment, we do not have collateral information but she denies active suicidal ideation or psychotic symptoms. Plan 1. Gather collateral information. 2. CBC with differential, basic metabolic panel, lipid profile, vitamin B12, folate and other medical workout. 3. Urinalysis. 4. CT scan head . 5. Start Remeron 7.5 mg p.o. q.h.s. to target dysphoria 06/08: appears well, full range of affect, denies anything of much concern. hoping to leave with her daughter soon. continue current mgmt. I spent ___15___ minutes with the patient and/or on the patient floor today, greater than?50% of which was spent counseling/coordinating care. Reason for contiued inpatient stay Substantial Risk for: harm to self and inability to function
[2022-06-08 18:00] VITALS: BP 155/69; PULSE 63; RESP 17; TEMP 36.9; O2SAT 97
[2022-06-08] MEDS: Mirtazapine 7.5 MG TABLET PO (20:18)
[2022-06-08] MEDS: Memantine HCl 10 MG TABLET PO (20:18)
[2022-06-08] MEDS: Atorvastatin Calcium 80 MG TABLET PO (20:18)
[2022-06-08] MEDS: OLANZapine 2.5 MG TABLET PO (20:20)
[2022-06-08] MEDS: Magnesium Hydrox/Alum Hydrox 30 ML ORAL.SUSP PO (22:13)
[2022-06-09] MEDS: Acetaminophen 325 MG TABLET 650 MG PO ×3 (04:31→21:26)
[2022-06-09] MEDS: Omeprazole 20 MG CAPSULE.DR PO (05:31)
[2022-06-09 06:00] VITALS: BP 124/60; PULSE 57; RESP 18; TEMP 36.2; O2SAT 97
[2022-06-09] MEDS: Empagliflozin 10 MG TABLET PO (09:04)
[2022-06-09] MEDS: Gabapentin 300 MG CAPSULE PO ×2 (09:04→20:05)
[2022-06-09] MEDS: carvediloL 6.25 MG TABLET PO ×2 (09:04→20:05)
[2022-06-09] MEDS: lisinopriL 2.5 MG TABLET PO (09:04)
--- NOTE | 2022-06-09 11:37 | HO.PSYCHPN ---
Subjective Subjective Date of Service: 06/09/22 Reason For Visit: Adjustment Disorders Interim History: voluble, loquacious. full range of affect, nearly teary a couple of times talking about not wanting to be in the hospital and her daughter's having put her here and not taking her home yesterday. tells a very circuitous and overly detailed account of the reason she was admitted to the hospital. per staff, pleasant, cooperative. slept 6 hours overnight. poor insight into her condition. Mental Status Exam Mental Status Exam Patient Appearance: Well Grooomed Patient Orientation: Person, Place and Situation Level of Consciousness: Awake and Appropriate Patient Behavior: Cooperative Affect Description: Happy and Relaxed Patient Cognition Impaired: Yes Ability to Follow Directions: Good Speech Pattern: Clear Hallucinations: None Delusions: Not Present Thought Process: Linear Thought Content: positive for [place] Judgement: Fair Diagnostics Vital Signs (24Hr): Vital Signs - 24 hr 06/08/22 18:00 06/09/22 06:00 Temperature 98.4 F 97.1 F Pulse Rate 63 57 Respiratory Rate 17 18 Blood Pressure 155/69 H 124/60 Pulse Oximetry 97 97 Oxygen Delivery Method Room Air Room Air BMI result Body Mass Index 25.3 Labs Results: 06/07/22 08:01 06/07/22 08:01 Imaging Radiology Impressions: ITS Impressions Head CT 06/07/22 11:17 IMPRESSION: 1. No evidence of acute intracranial hemorrhage or edematous territorial infarction. 2. Mild underlying microangiopathy and generalized cerebral volume loss. Medications Medications Current Medications Acetaminophen (Acetaminophen 325 Mg Tablet) 650 mg PO Q6H PRN PRN Reason: Headache/Pain Mild Scale (1-3) Last Admin: 06/09/22 04:31 Dose: 650 mg Al Hydroxide/Mg Hydroxide (Magnesium Hydrox/Alum Hydrox 30 Ml Oral.Susp) 30 ml PO Q6H PRN PRN Reason: Heartburn/Nausea Last Admin: 06/08/22 22:13 Dose: 30 ml Atorvastatin Calcium (Atorvastatin Calcium 80 Mg Tablet) 80 mg PO BEDTIME [facility] Last Admin: 06/08/22 20:18 Dose: 80 mg Carvedilol (Carvedilol 6.25 Mg Tablet) 6.25 mg PO BID [facility] Last Admin: 06/09/22 09:04 Dose: 6.25 mg Empagliflozin (Empagliflozin 10 Mg Tablet) 10 mg PO DAILY [facility] Last Admin: 06/09/22 09:04 Dose: 10 mg Gabapentin (Gabapentin 300 Mg Capsule) 300 mg PO BID [facility] Last Admin: 06/09/22 09:04 Dose: 300 mg Hydroxyzine HCl (Hydroxyzine Hcl 25 Mg Tablet) 25 mg PO Q6H PRN PRN Reason: Anxiety Lisinopril (Lisinopril 2.5 Mg Tablet) 2.5 mg PO DAILY [facility]; Protocol Last Admin: 06/09/22 09:04 Dose: 2.5 mg Magnesium Hydroxide (Milk Of Magnesia 30 Ml Oral.Susp) 30 ml PO DAILY PRN PRN Reason: Constipation Memantine (Memantine Hcl 10 Mg Tablet) 10 mg PO BEDTIME [facility] Last Admin: 06/08/22 20:18 Dose: 10 mg Mirtazapine (Mirtazapine 7.5 Mg Tablet) 7.5 mg PO BEDTIME [facility] Last Admin: 06/08/22 20:18 Dose: 7.5 mg Olanzapine (Olanzapine 2.5 Mg Tablet) 2.5 mg PO BEDTIME [facility] Last Admin: 06/08/22 20:20 Dose: 2.5 mg Olanzapine (Olanzapine 2.5 Mg Tablet) 2.5 mg PO TID PRN PRN Reason: Agitation Omeprazole (Omeprazole 20 Mg Capsule.Dr) 20 mg PO DAILY@0630 [facility] Last Admin: 06/09/22 05:31 Dose: 20 mg Trazodone HCl (Trazodone Hcl 50 Mg Tablet) 50 mg PO BEDTIME PRN PRN Reason: Insomnia Last Admin: 06/06/22 21:37 Dose: 50 mg Allergies Allergies Allergy/AdvReac Type Severity Reaction Status Date / Time Unable to Assess Allergy Unverified 06/06/22 13:17 Assessment & Plan Assessment & Plan (1) Diet-controlled type 2 diabetes mellitus: Status: Acute Code(s): E11.9 - Type 2 diabetes mellitus without complications (2) Hypertension: Status: Acute Code(s): I10 - Essential (primary) hypertension (3) Depression: Status: Acute Code(s): F32.A - Depression, unspecified (4) Cognitive and behavioral changes: Status: Acute Code(s): R41.89 - Other symptoms and signs involving cognitive functions and awareness; R46.89 - Other symptoms and signs involving appearance and behavior Plan The patient is an elderly female, recently moved from [place] to [place] transfer from [facility] sings she had cognitive impairment and recently feeling depressed. At this moment, we do not have collateral information but she denies active suicidal ideation or psychotic symptoms. Plan 1. Gather collateral information. 2. CBC with differential, basic metabolic panel, lipid profile, vitamin B12, folate and other medical workout. 3. Urinalysis. 4. CT scan head . 5. Start Remeron 7.5 mg p.o. q.h.s. to target dysphoria 06/08: appears well, full range of affect, denies anything of much concern. hoping to leave with her daughter soon. continue current mgmt. 06/09: feeling she does not need to be in the hospital, upset her daughter has put her here. no other complaints or requests. I spent ___25___ minutes with the patient and/or on the patient floor today, greater than?50% of which was spent counseling/coordinating care. Reason for contiued inpatient stay Substantial Risk for: inability to function
[2022-06-09 18:00] VITALS: BP 172/72; PULSE 64; RESP 18; TEMP 36.9; O2SAT 96
[2022-06-09] MEDS: Atorvastatin Calcium 80 MG TABLET PO (20:04)
[2022-06-09] MEDS: Memantine HCl 10 MG TABLET PO (20:04)
[2022-06-09] MEDS: Mirtazapine 7.5 MG TABLET PO (20:04)
[2022-06-09] MEDS: OLANZapine 2.5 MG TABLET PO (20:05)
[2022-06-09] MEDS: hydrOXYzine HCL 25 MG TABLET PO (21:27)
[2022-06-09] MEDS: traZODone HCL 50 MG TABLET PO (21:27)
[2022-06-10] MEDS: Acetaminophen 325 MG TABLET 650 MG PO ×2 (04:21→22:32)
[2022-06-10] MEDS: Omeprazole 20 MG CAPSULE.DR PO (06:12)
[2022-06-10 09:15] VITALS: BP 146/64; PULSE 53; RESP 14; TEMP 36.6; O2SAT 98
[2022-06-10] MEDS: carvediloL 6.25 MG TABLET PO ×2 (10:22→20:59)
[2022-06-10] MEDS: lisinopriL 2.5 MG TABLET PO (10:22)
[2022-06-10] MEDS: Empagliflozin 10 MG TABLET PO (10:22)
[2022-06-10] MEDS: Gabapentin 300 MG CAPSULE PO ×2 (10:23→20:56)
--- NOTE | 2022-06-10 13:26 | PC.NURSE ---
Pt participated in [facility] screen on this date with sore of , one point added due to pt not finishing high school. This score is indicative of moderate cognitive impairment . Technical Service Specialist and MD made aware of score.
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
[2022-06-10 18:00] VITALS: BP 144/59; PULSE 71; RESP 18; TEMP 36.9; O2SAT 97
[2022-06-10] MEDS: OLANZapine 2.5 MG TABLET PO (20:56)
[2022-06-10] MEDS: hydrOXYzine HCL 25 MG TABLET PO (20:56)
[2022-06-10] MEDS: Memantine HCl 10 MG TABLET PO (20:56)
[2022-06-10] MEDS: Mirtazapine 7.5 MG TABLET PO (20:56)
[2022-06-10] MEDS: Atorvastatin Calcium 80 MG TABLET PO (20:59)
[2022-06-11] MEDS: Acetaminophen 325 MG TABLET 650 MG PO ×3 (03:53→18:45)
[2022-06-11] MEDS: Omeprazole 20 MG CAPSULE.DR PO (06:06)
[2022-06-11 08:30] VITALS: BP 114/57; RESP 18; TEMP 36.4; O2SAT 98
[2022-06-11] MEDS: Gabapentin 300 MG CAPSULE PO ×2 (10:03→20:47)
[2022-06-11] MEDS: lisinopriL 2.5 MG TABLET PO (10:03)
[2022-06-11] MEDS: Empagliflozin 10 MG TABLET PO (10:03)
[2022-06-11] MEDS: carvediloL 6.25 MG TABLET PO ×2 (10:05→20:48)
--- NOTE | 2022-06-11 12:37 | P.PNPSI_ITS ---
Subjective Subjective Date of Service: 06/11/22 Reason For Visit: Adjustment Disorders Subjective Notes: Conditional Voluntary Interim History: The nursing staff reported the patient slept poorly last night she was waking up. The staff has reported that she presented with sundowning and she has been agitated and anxious with staff very impaired cognitively. The occupational therapy reported that she has court on the [place] but her deficit are well healing. We will invoke the healthcare proxy today since the patient looks very confused. On interview the patient denies new symptoms Mental Status Exam Mental Status Exam Patient Appearance: Well Grooomed Patient Orientation: Person and Situation Level of Consciousness: Awake Patient Behavior: Cooperative Diagnostics Vital Signs (24Hr): Vital Signs - 24 hr 06/10/22 18:00 Temperature 98.4 F Pulse Rate 71 Respiratory Rate 18 Blood Pressure 144/59 H Pulse Oximetry 97 Oxygen Delivery Method Room Air BMI result Body Mass Index 25.3 Labs Results: 06/07/22 08:01 06/07/22 08:01 Imaging Radiology Impressions: ITS Impressions Head CT 06/07/22 11:17 IMPRESSION: 1. No evidence of acute intracranial hemorrhage or edematous territorial infarction. 2. Mild underlying microangiopathy and generalized cerebral volume loss. Medications Medications Current Medications Acetaminophen (Acetaminophen 325 Mg Tablet) 650 mg PO Q6H PRN PRN Reason: Headache/Pain Mild Scale (1-3) Last Admin: 06/11/22 12:21 Dose: 650 mg Al Hydroxide/Mg Hydroxide (Magnesium Hydrox/Alum Hydrox 30 Ml Oral.Susp) 30 ml PO Q6H PRN PRN Reason: Heartburn/Nausea Last Admin: 06/08/22 22:13 Dose: 30 ml Atorvastatin Calcium (Atorvastatin Calcium 80 Mg Tablet) 80 mg PO BEDTIME [facility] Last Admin: 06/10/22 20:59 Dose: 80 mg Carvedilol (Carvedilol 6.25 Mg Tablet) 6.25 mg PO BID [facility] Last Admin: 06/11/22 10:05 Dose: 6.25 mg Empagliflozin (Empagliflozin 10 Mg Tablet) 10 mg PO DAILY [facility] Last Admin: 06/11/22 10:03 Dose: 10 mg Gabapentin (Gabapentin 300 Mg Capsule) 300 mg PO BID [facility] Last Admin: 06/11/22 10:03 Dose: 300 mg Hydroxyzine HCl (Hydroxyzine Hcl 25 Mg Tablet) 25 mg PO Q6H PRN PRN Reason: Anxiety Last Admin: 06/10/22 20:56 Dose: 25 mg Lisinopril (Lisinopril 2.5 Mg Tablet) 2.5 mg PO DAILY [facility]; Protocol Last Admin: 06/11/22 10:03 Dose: 2.5 mg Magnesium Hydroxide (Milk Of Magnesia 30 Ml Oral.Susp) 30 ml PO DAILY PRN PRN Reason: Constipation Memantine (Memantine Hcl 10 Mg Tablet) 10 mg PO BEDTIME [facility] Last Admin: 06/10/22 20:56 Dose: 10 mg Mirtazapine (Mirtazapine 7.5 Mg Tablet) 7.5 mg PO BEDTIME [facility] Last Admin: 06/10/22 20:56 Dose: 7.5 mg Olanzapine (Olanzapine 2.5 Mg Tablet) 2.5 mg PO BEDTIME [facility] Last Admin: 06/10/22 20:56 Dose: 2.5 mg Olanzapine (Olanzapine 2.5 Mg Tablet) 2.5 mg PO TID PRN PRN Reason: Agitation Omeprazole (Omeprazole 20 Mg Capsule.Dr) 20 mg PO DAILY@0630 [facility] Last Admin: 06/11/22 06:06 Dose: 20 mg Trazodone HCl (Trazodone Hcl 50 Mg Tablet) 50 mg PO BEDTIME PRN PRN Reason: Insomnia Last Admin: 06/09/22 21:27 Dose: 50 mg Allergies Allergies Allergy/AdvReac Type Severity Reaction Status Date / Time Unable to Assess Allergy Unverified 06/06/22 13:17 Assessment & Plan Assessment & Plan (1) Diet-controlled type 2 diabetes mellitus: Status: Acute Code(s): E11.9 - Type 2 diabetes mellitus without complications (2) Hypertension: Status: Acute Code(s): I10 - Essential (primary) hypertension (3) Depression: Status: Acute Code(s): F32.A - Depression, unspecified (4) Cognitive and behavioral changes: Status: Acute Code(s): R41.89 - Other symptoms and signs involving cognitive functions and awareness; R46.89 - Other symptoms and signs involving appearance and behavior Plan The patient is an elderly female, recently moved from [place] to [place] transfer from [facility] sings she had cognitive impairment and recently feeling depressed. At this moment, we do not have collateral information but she denies active suicidal ideation or psychotic symptoms. Plan 1. Gather collateral information. 2. CBC with differential, basic metabolic panel, lipid profile, vitamin B12, folate and other medical workout. 3. Urinalysis. 4. CT scan head . 5. Start Remeron 7.5 mg p.o. q.h.s. to target dysphoria I spent minutes with the patient and/or on the patient floor today, greater than?50% of which was spent counseling/coordinating care. Reason for contiued inpatient stay Substantial Risk for: inability to function, rapid decompensation and med/psych decompensation
--- NOTE | 2022-06-11 15:55 | P.CONHOSP_ITS ---
History of Present Illness Data of Consult Service Date: 06/11/22 Requesting physician: Stevan Soriano Primary Care Provider: Unknown Physician HPI Reason for consult: swollen left eyelid 71-year-old female with history of hypertension and diet-controlled type 2 diabetes admitted to geriatric Psychiatry with consult placed for evaluation of swelling of the left upper eyelid that has been ongoing for 1 day. Patient is reporting painful focal swelling of the left upper lid. She states this happens recurrent leak and has required treatment with ophthalmic ointment in the past. She has been using compresses on the eye with limited improvement in symptoms. She denies any drainage from the eye. No blurred or double vision. Denies any pain of the eye globe. Denies any injury to the eye. Review of Systems Review of Systems: General: No fevers, malaise, unintentional weight loss HEENT: +swelling/pain left upper eyelid. No drainage, blurred vision, diplopia Cardiovascular: No chest pain, palpitations, or leg edema Respiratory: No shortness of breath, wheezing, cough Neuro: No headaches, weakness, paresthesias Skin: No rashes or lesions [facility] Medical History Chronic pain of left lower extremity Diet-controlled type 2 diabetes mellitus Hypertension Family History Brother Diabetes Cancer Mother Diabetes Surgical History History of lumbar surgery Social History Household Members: Family Housing: House Do you presently have visiting nurse or other home services: No ( I was but my daughter sent her home and I had no one to walk with. ) Patient Tobacco Use Status: Current someday Tobacco user Tobacco use type: Cigarette Cigarettes Per Day: 2 Years Smoked: 58 Smoked in Last 30 Days: Yes e-Cigarette/Vaping Use: Never Used Patient Interested in Nicotine Replacement: No Patient Given Instructions on How to Stop Smoking: No (Will be referred to r espiratory.) Use of substances other than those prescribed or required for medical reasons: No Currently Displaying Signs/Symptoms of Drug Intoxication Withdrawal: No Any prior treatment program specific to substance use: No Have you been hit, kicked, punched, or otherwise hurt by someone within the past year? If so, by whom?: No Do you feel safe in your current relationship?: No Current Relationship Is there a partner from a previous relationship who is making you feel unsafe now?: No Are you made to feel afraid or neglected: No Spiritual Healthcare Practices: no Shinto Healthcare Practices: no Cultural Healthcare Practices: no Advance Directives: Yes Advance Directives Information Provided: Yes Advance Directives on File: No Do you have thoughts of harming others: None Do you have a plan to hurt others: No Plan Recently lost weight without trying: No Eating poorly because of decreased appetite: No Nutrition Risks: No Nutritional Risk Patient : No : No Poor oral hygiene: No service: No Sexual orientation: Straight/Heterosexual Meds Allergies Allergy/AdvReac Type Severity Reaction Status Date / Time Unable to Assess Allergy Unverified 06/06/22 13:17 Active Medications: Current Medications Acetaminophen (Acetaminophen 325 Mg Tablet) 650 mg PO Q6H PRN PRN Reason: Headache/Pain Mild Scale (1-3) Last Admin: 06/11/22 12:21 Dose: 650 mg Al Hydroxide/Mg Hydroxide (Magnesium Hydrox/Alum Hydrox 30 Ml Oral.Susp) 30 ml PO Q6H PRN PRN Reason: Heartburn/Nausea Last Admin: 06/08/22 22:13 Dose: 30 ml Atorvastatin Calcium (Atorvastatin Calcium 80 Mg Tablet) 80 mg PO BEDTIME [facility] Last Admin: 06/10/22 20:59 Dose: 80 mg Carvedilol (Carvedilol 6.25 Mg Tablet) 6.25 mg PO BID [facility] Last Admin: 06/11/22 10:05 Dose: 6.25 mg Empagliflozin (Empagliflozin 10 Mg Tablet) 10 mg PO DAILY [facility] Last Admin: 06/11/22 10:03 Dose: 10 mg Gabapentin (Gabapentin 300 Mg Capsule) 300 mg PO BID [facility] Last Admin: 06/11/22 10:03 Dose: 300 mg Hydroxyzine HCl (Hydroxyzine Hcl 25 Mg Tablet) 25 mg PO Q6H PRN PRN Reason: Anxiety Last Admin: 06/10/22 20:56 Dose: 25 mg Lisinopril (Lisinopril 2.5 Mg Tablet) 2.5 mg PO DAILY [facility]; Protocol Last Admin: 06/11/22 10:03 Dose: 2.5 mg Magnesium Hydroxide (Milk Of Magnesia 30 Ml Oral.Susp) 30 ml PO DAILY PRN PRN Reason: Constipation Memantine (Memantine Hcl 10 Mg Tablet) 10 mg PO BEDTIME [facility] Last Admin: 06/10/22 20:56 Dose: 10 mg Mirtazapine (Mirtazapine 7.5 Mg Tablet) 7.5 mg PO BEDTIME [facility] Last Admin: 06/10/22 20:56 Dose: 7.5 mg Olanzapine (Olanzapine 2.5 Mg Tablet) 2.5 mg PO BEDTIME [facility] Last Admin: 06/10/22 20:56 Dose: 2.5 mg Olanzapine (Olanzapine 2.5 Mg Tablet) 2.5 mg PO TID PRN PRN Reason: Agitation Omeprazole (Omeprazole 20 Mg Capsule.Dr) 20 mg PO DAILY@0630 [facility] Last Admin: 06/11/22 06:06 Dose: 20 mg Trazodone HCl (Trazodone Hcl 50 Mg Tablet) 50 mg PO BEDTIME PRN PRN Reason: Insomnia Last Admin: 06/09/22 21:27 Dose: 50 mg Home Medications Medication Instructions Recorded Confirmed Last Taken Type Vicodin ES 1 tab PO PRN Pain 06/06/22 Unknown History atorvastatin 80 mg tablet 80 mg PO BEDTIME 06/06/22 06/06/22 Unknown History carvedilol 6.25 mg PO BID 06/06/22 06/06/22 Unknown History dapagliflozin 10 mg tablet 10 mg PO DAILY 06/06/22 06/06/22 Unknown History ([place]) esomeprazole mag-glycerin 06/06/22 Unknown History gabapentin 300 mg PO BID 06/06/22 06/06/22 Unknown History lisinopril 2.5 mg tablet 2.5 mg PO DAILY 06/06/22 06/06/22 Unknown History memantine 10 mg tablet 10 mg PO QPM 06/06/22 06/06/22 Unknown History olanzapine 2.5 tab PO BEDTIME 06/06/22 06/06/22 Unknown History olanzapine 2.5 mg tablet 2.5 mg PO TID PRN Agitation 06/06/22 06/06/22 Unknown History semaglutide 1 mg/dose (4 mg/3 mL) 1 mg subcut QWEEK 06/06/22 06/06/22 Unknown History subcutaneous pen injector (Ozempic) Physical Exam 2 Vital Signs and Narrative: Vital Signs: Last Vital Signs Temp 97.6 F 06/11/22 08:30 Pulse 71 06/10/22 18:00 Resp 18 06/11/22 08:30 BP 114/57 L 06/11/22 08:30 Pulse Ox 98 06/11/22 08:30 O2 Del Method 06/11/22 08:30 BMI result Body Mass Index 25.3 Constitutional - Awake and Alert, No apparent distress Eyes - PERRLA, EOMI. Slight conjunctival injection left eye, sclera normal. There is focal swelling and tenderness to palpation of the mid upper eyelid without fluctuance Cardiovascular - S1S2, RRR, No edema Respiratory - Normal lung expansion, Normal respiratory effort, No respiratory distress, CTA bilaterally Skin - Warm/Dry Neurological - Alert & oriented x3, CN II-XII in tact Psychological - Appropriate affect Results Labs CBC and Chem 7: 06/07/22 08:01 06/07/22 08:01 Assessment and Plan (1) Internal hordeolum of left eye: Status: Acute Plan 71-year-old female with history of hypertension and diet-controlled type 2 diabetes admitted to Psychiatry with consult placed for swelling left upper lid. #Left External hordeolum with mild conjunctivitis -Erythromycin ointment 4 times daily while awake -Recommend disposable warm compresses throughout the day -Avoid touching the eye and wash hands often -Denies any visual disturbance -Monitor for worsening symptoms including visual disturbance, pain of the eye globe, or drainage Thank you for allowing me to participate in this consult. Signing off at this time. Please do not hesitate to call for further questions.
[2022-06-11 18:00] VITALS: BP 133/60; PULSE 66; RESP 16; TEMP 36.7; O2SAT 94
[2022-06-11] MEDS: Erythromycin Base 0.5% Oph Oin 1 GM TUBE 1 CM EYE-LEFT ×2 (20:44→23:59)
[2022-06-11] MEDS: Atorvastatin Calcium 80 MG TABLET PO (20:47)
[2022-06-11] MEDS: Mirtazapine 7.5 MG TABLET PO (20:47)
[2022-06-11] MEDS: hydrOXYzine HCL 25 MG TABLET PO (20:48)
[2022-06-11] MEDS: OLANZapine 2.5 MG TABLET PO (20:48)
[2022-06-11] MEDS: traZODone HCL 50 MG TABLET PO (20:48)
[2022-06-11] MEDS: Memantine HCl 10 MG TABLET PO (20:48)
[2022-06-12] MEDS: Acetaminophen 325 MG TABLET 650 MG PO ×2 (00:39→19:40)
[2022-06-12] MEDS: hydrOXYzine HCL 25 MG TABLET PO ×2 (03:33→19:40)
[2022-06-12 06:00] VITALS: BP 119/63; PULSE 61; TEMP 36.9; O2SAT 96
[2022-06-12] MEDS: Omeprazole 20 MG CAPSULE.DR PO (06:47)
[2022-06-12] MEDS: carvediloL 6.25 MG TABLET PO ×2 (10:16→21:12)
[2022-06-12] MEDS: Erythromycin Base 0.5% Oph Oin 1 GM TUBE 1 CM EYE-LEFT ×4 (10:16→21:15)
[2022-06-12] MEDS: Empagliflozin 10 MG TABLET PO (10:16)
[2022-06-12] MEDS: Gabapentin 300 MG CAPSULE PO ×2 (10:16→21:13)
[2022-06-12] MEDS: lisinopriL 2.5 MG TABLET PO (10:17)
--- NOTE | 2022-06-12 14:48 | HO.PSYCHPN ---
Subjective Subjective Date of Service: 06/12/22 Reason For Visit: Adjustment Disorders Subjective Notes: Conditional Voluntary Interim History: The nursing staff reported the patient slept poorly last night. She complained of pain and she requested Tylenol with codeine. The social media analyst will try to get releases since we invoke the healthcare proxy. On interview the patient remains pleasantly confused, her dementia is more severe that it looks like. We discussed options and she agreed increase Namenda to 10 mg p.o. b.i.d. and increase Zyprexa to 5 p.o. q.h.s. since she remains accusatory and psychotic at times Mental Status Exam Mental Status Exam Patient Appearance: Well Grooomed Patient Orientation: Person and Situation Level of Consciousness: Awake Patient Behavior: Cooperative Mood Description: Calm Affect Description: Labile Patient Cognition Impaired: Yes Ability to Follow Directions: Good Speech Pattern: Appropriate Hallucinations: None Delusions: Paranoid Ideation Thought Process: Distracted Thought Content: positive for [place] and positive for [place] of Content Judgement: Fair Diagnostics Vital Signs (24Hr): Vital Signs - 24 hr 06/11/22 18:00 06/12/22 06:00 Temperature 98.1 F 98.4 F Pulse Rate 66 61 Respiratory Rate 16 Blood Pressure 133/60 119/63 Pulse Oximetry 94 96 Oxygen Delivery Method Room Air Room Air BMI result Body Mass Index 25.3 Labs Results: 06/07/22 08:01 06/07/22 08:01 Imaging Radiology Impressions: ITS Impressions Head CT 06/07/22 11:17 IMPRESSION: 1. No evidence of acute intracranial hemorrhage or edematous territorial infarction. 2. Mild underlying microangiopathy and generalized cerebral volume loss. Medications Medications Current Medications Acetaminophen (Acetaminophen 325 Mg Tablet) 650 mg PO Q6H PRN PRN Reason: Headache/Pain Mild Scale (1-3) Last Admin: 06/12/22 00:39 Dose: 650 mg Al Hydroxide/Mg Hydroxide (Magnesium Hydrox/Alum Hydrox 30 Ml Oral.Susp) 30 ml PO Q6H PRN PRN Reason: Heartburn/Nausea Last Admin: 06/08/22 22:13 Dose: 30 ml Atorvastatin Calcium (Atorvastatin Calcium 80 Mg Tablet) 80 mg PO BEDTIME [facility] Last Admin: 06/11/22 20:47 Dose: 80 mg Carvedilol (Carvedilol 6.25 Mg Tablet) 6.25 mg PO BID [facility] Last Admin: 06/12/22 10:16 Dose: 6.25 mg Empagliflozin (Empagliflozin 10 Mg Tablet) 10 mg PO DAILY [facility] Last Admin: 06/12/22 10:16 Dose: 10 mg Erythromycin (Erythromycin Base 0.5% Oph Oin 1 Gm Tube) 1 cm EYE-LEFT QID [facility] Last Admin: 06/12/22 12:32 Dose: 1 cm Gabapentin (Gabapentin 300 Mg Capsule) 300 mg PO BID [facility] Last Admin: 06/12/22 10:16 Dose: 300 mg Hydroxyzine HCl (Hydroxyzine Hcl 25 Mg Tablet) 25 mg PO Q6H PRN PRN Reason: Anxiety Last Admin: 06/12/22 03:33 Dose: 25 mg Lisinopril (Lisinopril 2.5 Mg Tablet) 2.5 mg PO DAILY [facility]; Protocol Last Admin: 06/12/22 10:17 Dose: 2.5 mg Magnesium Hydroxide (Milk Of Magnesia 30 Ml Oral.Susp) 30 ml PO DAILY PRN PRN Reason: Constipation Memantine (Memantine Hcl 10 Mg Tablet) 10 mg PO BEDTIME [facility] Last Admin: 06/11/22 20:48 Dose: 10 mg Mirtazapine (Mirtazapine 7.5 Mg Tablet) 7.5 mg PO BEDTIME [facility] Last Admin: 06/11/22 20:47 Dose: 7.5 mg Olanzapine (Olanzapine 2.5 Mg Tablet) 2.5 mg PO BEDTIME [facility] Last Admin: 06/11/22 20:48 Dose: 2.5 mg Olanzapine (Olanzapine 2.5 Mg Tablet) 2.5 mg PO TID PRN PRN Reason: Agitation Omeprazole (Omeprazole 20 Mg Capsule.Dr) 20 mg PO DAILY@0630 [facility] Last Admin: 06/12/22 06:47 Dose: 20 mg Trazodone HCl (Trazodone Hcl 50 Mg Tablet) 50 mg PO BEDTIME PRN PRN Reason: Insomnia Last Admin: 06/11/22 20:48 Dose: 50 mg Allergies Allergies Allergy/AdvReac Type Severity Reaction Status Date / Time Unable to Assess Allergy Unverified 06/06/22 13:17 Assessment & Plan Assessment & Plan (1) Internal hordeolum of left eye: Status: Acute Code(s): H00.026 - Hordeolum internum left eye, unspecified eyelid Plan 71-year-old female with history of hypertension and diet-controlled type 2 diabetes admitted to Psychiatry with consult placed for swelling left upper lid. #Left External hordeolum with mild conjunctivitis -Erythromycin ointment 4 times daily while awake -Recommend disposable warm compresses throughout the day -Avoid touching the eye and wash hands often -Denies any visual disturbance -Monitor for worsening symptoms including visual disturbance, pain of the eye globe, or drainage Thank you for allowing me to participate in this consult. Signing off at this time. Please do not hesitate to call for further questions. Psychiatry. 1. Gather collateral information. 2. Increase Zyprexa up to 5 mg p.o. q.h.s. to target mood lability and insomnia. 3. Increase Namenda to 10 mg p.o. b.i.d.. 4. Start working on discharge planning I spent ___20___ minutes with the patient and/or on the patient floor today, greater than?50% of which was spent counseling/coordinating care. Reason for contiued inpatient stay Substantial Risk for: inability to function, rapid decompensation and med/psych decompensation
[2022-06-12 18:00] VITALS: BP 136/63; PULSE 69; RESP 16; TEMP 36.6; O2SAT 97
[2022-06-12] MEDS: Hydrocortisone 2.5 % Rectal Cr 30 GM TUBE 1 APPL PR (20:00)
[2022-06-12] MEDS: Mirtazapine 7.5 MG TABLET PO (21:12)
[2022-06-12] MEDS: traZODone HCL 50 MG TABLET PO (21:13)
[2022-06-12] MEDS: OLANZapine 5 MG TABLET PO (21:13)
[2022-06-12] MEDS: Atorvastatin Calcium 80 MG TABLET PO (21:13)
[2022-06-12] MEDS: Memantine HCl 10 MG TABLET PO (21:14)
[2022-06-13] MEDS: Acetaminophen 325 MG TABLET 650 MG PO ×2 (00:44→20:41)
[2022-06-13 06:00] VITALS: BP 160/72; PULSE 61; RESP 17; TEMP 36.6; O2SAT 97
[2022-06-13] MEDS: Omeprazole 20 MG CAPSULE.DR PO (06:03)
[2022-06-13 07:00] VITALS: BMI 26.9
[2022-06-13] MEDS: carvediloL 6.25 MG TABLET PO (08:38)
[2022-06-13] MEDS: lisinopriL 2.5 MG TABLET PO (08:38)
[2022-06-13] MEDS: Memantine HCl 10 MG TABLET PO (08:38)
[2022-06-13] MEDS: Erythromycin Base 0.5% Oph Oin 1 GM TUBE 1 CM EYE-LEFT ×4 (08:38→20:45)
[2022-06-13] MEDS: Gabapentin 300 MG CAPSULE PO ×2 (08:38→20:44)
[2022-06-13] MEDS: Empagliflozin 10 MG TABLET PO (08:38)
--- NOTE | 2022-06-13 11:30 | HO.PSYCHPN ---
Subjective Subjective Date of Service: 06/13/22 Reason For Visit: Adjustment Disorders Subjective Notes: Conditional Voluntary Interim History: The nursing staff reported the patient slept poorly last night she was awake. She complained about her hemorrhoids to the nursing staff at night. Today in the morning she woke up and she was pleasant and cooperative. The occupational therapist reported that she scored 4.8 on the [place]i test and her [place] 42/30. The psychiatric social worker supervisor talk with her daughter and apparently she has an appointment with a neurologist next Friday and the memory clinic of [facility]. On interview the patient denies new symptoms Mental Status Exam Mental Status Exam Patient Appearance: Well Grooomed Patient Orientation: Person and Situation Level of Consciousness: Awake Patient Behavior: Cooperative Mood Description: Calm Affect Description: Constricted Patient Cognition Impaired: Yes Ability to Follow Directions: Fair Speech Pattern: Clear Hallucinations: None Thought Process: Distracted Thought Content: positive for [place] Judgement: Fair Diagnostics Vital Signs (24Hr): Vital Signs - 24 hr 06/12/22 18:00 06/13/22 06:00 Temperature 97.9 F 97.8 F Pulse Rate 69 61 Respiratory Rate 16 17 Blood Pressure 136/63 160/72 H Pulse Oximetry 97 97 Oxygen Delivery Method Room Air Room Air BMI result Body Mass Index 25.3 Labs Results: 06/07/22 08:01 06/07/22 08:01 Imaging Radiology Impressions: ITS Impressions Head CT 06/07/22 11:17 IMPRESSION: 1. No evidence of acute intracranial hemorrhage or edematous territorial infarction. 2. Mild underlying microangiopathy and generalized cerebral volume loss. Medications Medications Current Medications Acetaminophen (Acetaminophen 325 Mg Tablet) 650 mg PO Q6H PRN PRN Reason: Headache/Pain Mild Scale (1-3) Last Admin: 06/13/22 00:44 Dose: 650 mg Al Hydroxide/Mg Hydroxide (Magnesium Hydrox/Alum Hydrox 30 Ml Oral.Susp) 30 ml PO Q6H PRN PRN Reason: Heartburn/Nausea Last Admin: 06/08/22 22:13 Dose: 30 ml Atorvastatin Calcium (Atorvastatin Calcium 80 Mg Tablet) 80 mg PO BEDTIME [facility] Last Admin: 06/12/22 21:13 Dose: 80 mg Carvedilol (Carvedilol 6.25 Mg Tablet) 6.25 mg PO BID [facility] Last Admin: 06/13/22 08:38 Dose: 6.25 mg Empagliflozin (Empagliflozin 10 Mg Tablet) 10 mg PO DAILY [facility] Last Admin: 06/13/22 08:38 Dose: 10 mg Erythromycin (Erythromycin Base 0.5% Oph Oin 1 Gm Tube) 1 cm EYE-LEFT QID [facility] Last Admin: 06/13/22 08:38 Dose: 1 cm Gabapentin (Gabapentin 300 Mg Capsule) 300 mg PO BID [facility] Last Admin: 06/13/22 08:38 Dose: 300 mg Hydrocortisone (Hydrocortisone 2.5 % Rectal Cr 30 Gm Tube) 1 appl [place] BID PRN PRN Reason: Hemorrhoids Last Admin: 06/12/22 20:00 Dose: 1 appl Hydroxyzine HCl (Hydroxyzine Hcl 25 Mg Tablet) 25 mg PO Q6H PRN PRN Reason: Anxiety Last Admin: 06/12/22 19:40 Dose: 25 mg Lisinopril (Lisinopril 2.5 Mg Tablet) 2.5 mg PO DAILY [facility]; Protocol Last Admin: 06/13/22 08:38 Dose: 2.5 mg Magnesium Hydroxide (Milk Of Magnesia 30 Ml Oral.Susp) 30 ml PO DAILY PRN PRN Reason: Constipation Memantine (Memantine Hcl 10 Mg Tablet) 10 mg PO BID [facility] Last Admin: 06/13/22 08:38 Dose: 10 mg Mirtazapine (Mirtazapine 7.5 Mg Tablet) 7.5 mg PO BEDTIME [facility] Last Admin: 06/12/22 21:12 Dose: 7.5 mg Olanzapine (Olanzapine 2.5 Mg Tablet) 2.5 mg PO TID PRN PRN Reason: Agitation Olanzapine (Olanzapine 5 Mg Tablet) 5 mg PO BEDTIME [facility] Last Admin: 06/12/22 21:13 Dose: 5 mg Omeprazole (Omeprazole 20 Mg Capsule.Dr) 20 mg PO DAILY@0630 [facility] Last Admin: 06/13/22 06:03 Dose: 20 mg Trazodone HCl (Trazodone Hcl 50 Mg Tablet) 50 mg PO BEDTIME PRN PRN Reason: Insomnia Last Admin: 06/12/22 21:13 Dose: 50 mg Allergies Allergies Allergy/AdvReac Type Severity Reaction Status Date / Time Unable to Assess Allergy Unverified 06/06/22 13:17 Assessment & Plan Assessment & Plan (1) Internal hordeolum of left eye: Status: Acute Code(s): H00.026 - Hordeolum internum left eye, unspecified eyelid Plan 71-year-old female with history of hypertension and diet-controlled type 2 diabetes admitted to Psychiatry with consult placed for swelling left upper lid. #Left External hordeolum with mild conjunctivitis -Erythromycin ointment 4 times daily while awake -Recommend disposable warm compresses throughout the day -Avoid touching the eye and wash hands often -Denies any visual disturbance -Monitor for worsening symptoms including visual disturbance, pain of the eye globe, or drainage psychiatry 1. Gather collateral information. 2. Continue with Zyprexa 5 mg p.o. q.h.s. to target psychosis. 3. Increase Namenda to 10 mg p.o. b.i.d. to target Alzheimer's. 4. Start Aricept 5 mg p.o. q.h.s. I spent ___20___ minutes with the patient and/or on the patient floor today, greater than?50% of which was spent counseling/coordinating care. Reason for contiued inpatient stay Substantial Risk for: inability to function, rapid decompensation and med/psych decompensation
[2022-06-13 18:00] VITALS: BP 137/68; PULSE 88; RESP 18; TEMP 36.3; O2SAT 96
[2022-06-13 19:39] LABS: Anion Gap 17 (12-20); Blood Urea Nitrogen 32 mg/dL (9-16); Carbon Dioxide 24 mmol/L (22-29); Chloride 104 mmol/L (96-108); Creatinine Clr Calc Pharmacy 26.4; Estimated Glomerular Filt Rate 30; Glucose Random 316 mg/dL (60-115); Potassium 4.7 mmol/L (3.3-5.1); Sodium 140 mmol/L (135-145)
[2022-06-13 19:44] LABS: B Type Natriuretic Peptide 59 pg/mL (<100)
--- NOTE | 2022-06-14 02:31 | PC.NURSE ---
U/S report showed negative for DVT. See Report.
[2022-06-14] MEDS: Acetaminophen 325 MG TABLET 650 MG PO ×3 (03:17→20:02)
[2022-06-14] MEDS: Omeprazole 20 MG CAPSULE.DR PO (05:59)
[2022-06-14 06:00] VITALS: BP 132/68; PULSE 71; RESP 17; TEMP 36.7; O2SAT 95
[2022-06-14] MEDS: Gabapentin 300 MG CAPSULE PO ×2 (09:31→20:03)
[2022-06-14] MEDS: lisinopriL 2.5 MG TABLET PO (09:31)
[2022-06-14] MEDS: Empagliflozin 10 MG TABLET PO (09:31)
[2022-06-14] MEDS: carvediloL 6.25 MG TABLET PO ×2 (09:32→20:03)
[2022-06-14] MEDS: Memantine HCl 10 MG TABLET PO ×2 (09:32→20:03)
[2022-06-14] MEDS: Erythromycin Base 0.5% Oph Oin 1 GM TUBE 1 CM EYE-LEFT ×4 (09:59→20:04)
--- NOTE | 2022-06-14 16:06 | HO.PSYCHPN ---
Subjective Subjective Date of Service: 06/14/22 Reason For Visit: Adjustment Disorders Subjective Notes: Conditional Voluntary Interim History: The nursing staff reported the patient refused her medications last night, she was angry after talking with her family. We had an ultrasound last night and came back normal. The social work administrator reported that the neurology appointment was rescheduled and her daughter wants her back to her home. Adult protective Services was contacted and they were reluctant of the discharge plan since they stated that her mental condition is not good and she should be discharged to a jail. On interview the patient was anxious and angry, asking for discharge. She has common planing of anxiety but she seems very confused Mental Status Exam Mental Status Exam Patient Appearance: Well Grooomed Patient Orientation: Person and Situation Level of Consciousness: Awake Patient Behavior: Cooperative Mood Description: Labile Affect Description: Constricted Patient Cognition Impaired: Yes Speech Pattern: Cofabulation Hallucinations: None Delusions: Paranoid Ideation Thought Content: positive for [place] Judgement: Poor Diagnostics Vital Signs (24Hr): Vital Signs - 24 hr 06/13/22 18:00 06/14/22 06:00 Temperature 97.3 F 98.1 F Pulse Rate 88 71 Respiratory Rate 18 17 Blood Pressure 137/68 132/68 Pulse Oximetry 96 95 Oxygen Delivery Method Room Air Room Air BMI result Body Mass Index 26.9 Labs Results: 06/07/22 08:01 06/13/22 19:02 Labs: Laboratory Results - last 48 hr 06/13/22 06/13/22 19:02 19:02 Sodium 140 Potassium 4.7 Chloride 104 Carbon Dioxide 24 Anion Gap 17 BUN 32 H Creatinine 1.66 H Estim Creat Clear Calc 26.4 Estimated GFR 30 Random Glucose 316 H Calcium 9.0 B-Natriuretic Peptide 59 Imaging Radiology Impressions: ITS Impressions Head CT 06/07/22 11:17 IMPRESSION: 1. No evidence of acute intracranial hemorrhage or edematous territorial infarction. 2. Mild underlying microangiopathy and generalized cerebral volume loss. Venous Duplex 06/13/22 19:56 IMPRESSION: No DVT demonstrated in the bilateral lower extremities. Medications Medications Current Medications Acetaminophen (Acetaminophen 325 Mg Tablet) 650 mg PO Q6H PRN PRN Reason: Headache/Pain Mild Scale (1-3) Last Admin: 06/14/22 09:46 Dose: 650 mg Al Hydroxide/Mg Hydroxide (Magnesium Hydrox/Alum Hydrox 30 Ml Oral.Susp) 30 ml PO Q6H PRN PRN Reason: Heartburn/Nausea Last Admin: 06/08/22 22:13 Dose: 30 ml Atorvastatin Calcium (Atorvastatin Calcium 80 Mg Tablet) 80 mg PO BEDTIME [facility] Last Admin: 06/13/22 22:44 Dose: Not Given Carvedilol (Carvedilol 6.25 Mg Tablet) 6.25 mg PO BID [facility] OF [facility] Last Admin: 06/14/22 09:32 Dose: 6.25 mg Donepezil HCl (Donepezil Hcl 5 Mg Tablet) 5 mg PO BEDTIME [facility] Last Admin: 06/13/22 22:44 Dose: Not Given Empagliflozin (Empagliflozin 10 Mg Tablet) 10 mg PO DAILY [facility] Last Admin: 06/14/22 09:31 Dose: 10 mg Erythromycin (Erythromycin Base 0.5% Oph Oin 1 Gm Tube) 1 cm EYE-LEFT QID [facility] Last Admin: 06/14/22 14:19 Dose: 1 cm Gabapentin (Gabapentin 300 Mg Capsule) 300 mg PO BID [facility] Last Admin: 06/14/22 09:31 Dose: 300 mg Hydrocortisone (Hydrocortisone 2.5 % Rectal Cr 30 Gm Tube) 1 appl MO BID PRN PRN Reason: Hemorrhoids Last Admin: 06/12/22 20:00 Dose: 1 appl Hydroxyzine HCl (Hydroxyzine Hcl 25 Mg Tablet) 25 mg PO Q6H PRN PRN Reason: Anxiety Last Admin: 06/12/22 19:40 Dose: 25 mg Lisinopril (Lisinopril 2.5 Mg Tablet) 2.5 mg PO DAILY [facility]; Protocol Last Admin: 06/14/22 09:31 Dose: 2.5 mg Magnesium Hydroxide (Milk Of Magnesia 30 Ml Oral.Susp) 30 ml PO DAILY PRN PRN Reason: Constipation Memantine (Memantine Hcl 10 Mg Tablet) 10 mg PO BID [facility] Last Admin: 06/14/22 09:32 Dose: 10 mg Mirtazapine (Mirtazapine 7.5 Mg Tablet) 7.5 mg PO BEDTIME [facility] Last Admin: 06/13/22 22:45 Dose: Not Given Olanzapine (Olanzapine 2.5 Mg Tablet) 2.5 mg PO TID PRN PRN Reason: Agitation Olanzapine (Olanzapine 5 Mg Tablet) 5 mg PO BEDTIME [facility] Last Admin: 06/13/22 22:45 Dose: Not Given Omeprazole (Omeprazole 20 Mg Capsule.) 20 mg PO DAILY@0630 [facility] Last Admin: 06/14/22 05:59 Dose: 20 mg Trazodone HCl (Trazodone Hcl 50 Mg Tablet) 50 mg PO BEDTIME PRN PRN Reason: Insomnia Last Admin: 06/12/22 21:13 Dose: 50 mg Allergies Allergies Allergy/AdvReac Type Severity Reaction Status Date / Time Unable to Assess Allergy Unverified 06/06/22 13:17 Assessment & Plan Assessment & Plan (1) Internal hordeolum of left eye: Status: Acute Code(s): H00.026 - Hordeolum internum left eye, unspecified eyelid Plan The patient is an elderly female, mother of adult children, relocated from [place] to [place] 3 months ago with a history of dementia that has worsen it. She was brought from the community since there were adult protective services involved since the patient goes for walks and she gets lost. Plan 1. Continue with same treatment. 2. Start working with discharge planning since the daughter wants to take her back and apparently there is no evidence of abuse I spent __20____ minutes with the patient and/or on the patient floor today, greater than?50% of which was spent counseling/coordinating care. Reason for contiued inpatient stay Substantial Risk for: inability to function, rapid decompensation and med/psych decompensation
[2022-06-14 18:00] VITALS: BP 156/74; PULSE 69; RESP 18; TEMP 36.6; O2SAT 98
[2022-06-14] MEDS: Atorvastatin Calcium 80 MG TABLET PO (20:02)
[2022-06-14] MEDS: OLANZapine 5 MG TABLET PO (20:02)
[2022-06-14] MEDS: Mirtazapine 7.5 MG TABLET PO (20:02)
[2022-06-14] MEDS: hydrOXYzine HCL 25 MG TABLET PO (20:03)
[2022-06-14] MEDS: Donepezil HCl 5 MG TABLET PO (20:03)
[2022-06-15 06:00] VITALS: BP 144/61; PULSE 56; RESP 16; TEMP 36.4; O2SAT 94
[2022-06-15] MEDS: Acetaminophen 325 MG TABLET 650 MG PO ×3 (06:05→20:20)
[2022-06-15] MEDS: Omeprazole 20 MG CAPSULE.DR PO (06:05)
[2022-06-15] MEDS: carvediloL 6.25 MG TABLET PO ×2 (08:57→20:21)
[2022-06-15] MEDS: Empagliflozin 10 MG TABLET PO (08:57)
[2022-06-15] MEDS: Erythromycin Base 0.5% Oph Oin 1 GM TUBE 1 CM EYE-LEFT ×3 (08:57→20:21)
[2022-06-15] MEDS: Gabapentin 300 MG CAPSULE PO ×2 (08:57→20:21)
[2022-06-15] MEDS: Memantine HCl 10 MG TABLET PO ×2 (08:57→20:21)
[2022-06-15] MEDS: lisinopriL 2.5 MG TABLET PO (08:57)
--- NOTE | 2022-06-15 10:40 | HO.PSYCHPN ---
Subjective Subjective Date of Service: 06/15/22 Reason For Visit: Adjustment Disorders Subjective Notes: Conditional Voluntary Interim History: Patient was seen and discussed in rounds today. She is doing better and has been less anxious and more compliant. She has been somatically preoccupied. She has something on her left eyelid for which he is getting erythromycin. She asked about an eyedrop for I tried to explain to her that it would not be that helpful. She has been eating and sleeping adequately. No complaints other than her on a. No changes were made today Medication Compliance: Intermittent Side effects from medications: No Review of Systems Review of Systems Possible infection of left eyelid Yes all other systems are reviewed and are negative Mental Status Exam Mental Status Exam Patient Appearance: Well Grooomed Patient Orientation: Person and Situation Level of Consciousness: Awake Patient Behavior: Cooperative Mood Description: Labile Affect Description: Constricted Patient Cognition Impaired: Yes Speech Pattern: Cofabulation Hallucinations: None Delusions: Paranoid Ideation Thought Content: positive for [place] Judgement: Poor Diagnostics Vital Signs (24Hr): Vital Signs - 24 hr 06/14/22 18:00 06/15/22 06:00 Temperature 97.9 F 97.6 F Pulse Rate 69 56 Respiratory Rate 18 16 Blood Pressure 156/74 H 144/61 H Pulse Oximetry 98 94 Oxygen Delivery Method Room Air Room Air BMI result Body Mass Index 26.9 Labs Results: 06/07/22 08:01 06/13/22 19:02 Labs: Laboratory Results - last 48 hr 06/13/22 06/13/22 19:02 19:02 Sodium 140 Potassium 4.7 Chloride 104 Carbon Dioxide 24 Anion Gap 17 BUN 32 H Creatinine 1.66 H Estim Creat Clear Calc 26.4 Estimated GFR 30 Random Glucose 316 H Calcium 9.0 B-Natriuretic Peptide 59 Imaging Radiology Impressions: ITS Impressions Head CT 06/07/22 11:17 IMPRESSION: 1. No evidence of acute intracranial hemorrhage or edematous territorial infarction. 2. Mild underlying microangiopathy and generalized cerebral volume loss. Venous Duplex 06/13/22 19:56 IMPRESSION: No DVT demonstrated in the bilateral lower extremities. Medications Medications Current Medications Acetaminophen (Acetaminophen 325 Mg Tablet) 650 mg PO Q6H PRN PRN Reason: Headache/Pain Mild Scale (1-3) Last Admin: 06/15/22 06:05 Dose: 650 mg Al Hydroxide/Mg Hydroxide (Magnesium Hydrox/Alum Hydrox 30 Ml Oral.Susp) 30 ml PO Q6H PRN PRN Reason: Heartburn/Nausea Last Admin: 06/08/22 22:13 Dose: 30 ml Atorvastatin Calcium (Atorvastatin Calcium 80 Mg Tablet) 80 mg PO BEDTIME [facility] Last Admin: 06/14/22 20:02 Dose: 80 mg Carvedilol (Carvedilol 6.25 Mg Tablet) 6.25 mg PO BID [facility] Last Admin: 06/15/22 08:57 Dose: 6.25 mg Donepezil HCl (Donepezil Hcl 5 Mg Tablet) 5 mg PO BEDTIME [facility] Last Admin: 06/14/22 20:03 Dose: 5 mg Empagliflozin (Empagliflozin 10 Mg Tablet) 10 mg PO DAILY [facility] Last Admin: 06/15/22 08:57 Dose: 10 mg Erythromycin (Erythromycin Base 0.5% Oph Oin 1 Gm Tube) 1 cm EYE-LEFT QID [facility] Last Admin: 06/15/22 08:57 Dose: 1 cm Gabapentin (Gabapentin 300 Mg Capsule) 300 mg PO BID [facility] Last Admin: 06/15/22 08:57 Dose: 300 mg Hydrocortisone (Hydrocortisone 2.5 % Rectal Cr 30 Gm Tube) 1 appl [place] BID PRN PRN Reason: Hemorrhoids Last Admin: 06/12/22 20:00 Dose: 1 appl Hydroxyzine HCl (Hydroxyzine Hcl 25 Mg Tablet) 25 mg PO Q6H PRN PRN Reason: Anxiety Last Admin: 06/14/22 20:03 Dose: 25 mg Lisinopril (Lisinopril 2.5 Mg Tablet) 2.5 mg PO DAILY [facility]; Protocol Last Admin: 06/15/22 08:57 Dose: 2.5 mg Magnesium Hydroxide (Milk Of Magnesia 30 Ml Oral.Susp) 30 ml PO DAILY PRN PRN Reason: Constipation Memantine (Memantine Hcl 10 Mg Tablet) 10 mg PO BID [facility] Last Admin: 06/15/22 08:57 Dose: 10 mg Mirtazapine (Mirtazapine 7.5 Mg Tablet) 7.5 mg PO BEDTIME [facility] Last Admin: 06/14/22 20:02 Dose: 7.5 mg Olanzapine (Olanzapine 2.5 Mg Tablet) 2.5 mg PO TID PRN PRN Reason: Agitation Olanzapine (Olanzapine 5 Mg Tablet) 5 mg PO BEDTIME [facility] Last Admin: 06/14/22 20:02 Dose: 5 mg Omeprazole (Omeprazole 20 Mg Capsule.) 20 mg PO DAILY@0630 [facility] Last Admin: 06/15/22 06:05 Dose: 20 mg Trazodone HCl (Trazodone Hcl 50 Mg Tablet) 50 mg PO BEDTIME PRN PRN Reason: Insomnia Last Admin: 06/12/22 21:13 Dose: 50 mg Allergies Allergies Allergy/AdvReac Type Severity Reaction Status Date / Time Unable to Assess Allergy Unverified 06/06/22 13:17 Assessment & Plan Assessment & Plan (1) Internal hordeolum of left eye: Status: Acute Code(s): H00.026 - Hordeolum internum left eye, unspecified eyelid Plan The patient is an elderly female, mother of adult children, relocated from [place] to [place] 3 months ago with a history of dementia that has worsen it. She was brought from the community since there were adult protective services involved since the patient goes for walks and she gets lost. Plan 1. Continue with same treatment. 2. Start working with discharge planning since the daughter wants to take her back and apparently there is no evidence of abuse 06/15: Continue current regimen and plans I spent minutes with the patient and/or on the patient floor today, greater than?50% of which was spent counseling/coordinating care. Patient educated on: medication risk/benefits Reason for contiued inpatient stay Substantial Risk for: inability to function
[2022-06-15 18:00] VITALS: BP 129/61; PULSE 70; RESP 16; TEMP 36.2; O2SAT 96
[2022-06-15] MEDS: hydrOXYzine HCL 25 MG TABLET PO (20:20)
[2022-06-15] MEDS: Atorvastatin Calcium 80 MG TABLET PO (20:20)
[2022-06-15] MEDS: OLANZapine 5 MG TABLET PO (20:20)
[2022-06-15] MEDS: Mirtazapine 7.5 MG TABLET PO (20:20)
[2022-06-15] MEDS: Donepezil HCl 5 MG TABLET PO (20:21)
[2022-06-16] MEDS: Omeprazole 20 MG CAPSULE.DR PO (06:04)
[2022-06-16 07:45] VITALS: BP 139/81; PULSE 58; RESP 16; TEMP 36.4; O2SAT 95
[2022-06-16] MEDS: Memantine HCl 10 MG TABLET PO ×2 (08:01→19:58)
[2022-06-16] MEDS: Gabapentin 300 MG CAPSULE PO ×2 (08:01→19:57)
[2022-06-16] MEDS: Empagliflozin 10 MG TABLET PO (08:01)
[2022-06-16] MEDS: carvediloL 6.25 MG TABLET PO ×2 (08:01→19:58)
[2022-06-16] MEDS: lisinopriL 2.5 MG TABLET PO (08:01)
--- NOTE | 2022-06-16 08:26 | P.PNPSI_ITS ---
Subjective Subjective Date of Service: 06/16/22 Reason For Visit: Adjustment Disorders Subjective Notes: Conditional Voluntary Interim History: Patient was seen and discussed in rounds today. She has been stable and is doing better. Her left eyelid still swollen but getting antibiotic ointment. She is less somatic. She states that her eye is less uncomfortable. No complaints or side effects today. She is looking forward to being discharged to her daughter soon. She is eating and sleeping adequately. No changes were made today Medication Compliance: Intermittent Side effects from medications: No Review of Systems Review of Systems Possible infection of left eyelid Yes all other systems are reviewed and are negative Mental Status Exam Mental Status Exam Patient Appearance: Well Grooomed Patient Orientation: Person and Situation Level of Consciousness: Awake Patient Behavior: Cooperative Mood Description: Labile Affect Description: Constricted Patient Cognition Impaired: Yes Speech Pattern: Cofabulation Hallucinations: None Delusions: Paranoid Ideation Thought Content: positive for [place] Judgement: Poor Diagnostics Vital Signs (24Hr): Vital Signs - 24 hr 06/15/22 18:00 Temperature 97.1 F Pulse Rate 70 Respiratory Rate 16 Blood Pressure 129/61 Pulse Oximetry 96 Oxygen Delivery Method Room Air BMI result Body Mass Index 26.9 Labs Results: 06/07/22 08:01 06/13/22 19:02 Imaging Radiology Impressions: ITS Impressions Head CT 06/07/22 11:17 IMPRESSION: 1. No evidence of acute intracranial hemorrhage or edematous territorial infarction. 2. Mild underlying microangiopathy and generalized cerebral volume loss. Venous Duplex 06/13/22 19:56 IMPRESSION: No DVT demonstrated in the bilateral lower extremities. Medications Medications Current Medications Acetaminophen (Acetaminophen 325 Mg Tablet) 650 mg PO Q6H PRN PRN Reason: Headache/Pain Mild Scale (1-3) Last Admin: 06/15/22 20:20 Dose: 650 mg Al Hydroxide/Mg Hydroxide (Magnesium Hydrox/Alum Hydrox 30 Ml Oral.Susp) 30 ml PO Q6H PRN PRN Reason: Heartburn/Nausea Last Admin: 06/08/22 22:13 Dose: 30 ml Atorvastatin Calcium (Atorvastatin Calcium 80 Mg Tablet) 80 mg PO BEDTIME [facility] Last Admin: 06/15/22 20:20 Dose: 80 mg Carvedilol (Carvedilol 6.25 Mg Tablet) 6.25 mg PO BID [facility] Last Admin: 06/16/22 08:01 Dose: 6.25 mg Donepezil HCl (Donepezil Hcl 5 Mg Tablet) 5 mg PO BEDTIME [facility] Last Admin: 06/15/22 20:21 Dose: 5 mg Empagliflozin (Empagliflozin 10 Mg Tablet) 10 mg PO DAILY [facility] Last Admin: 06/16/22 08:01 Dose: 10 mg Erythromycin (Erythromycin Base 0.5% Oph Oin 1 Gm Tube) 1 cm EYE-LEFT QID [facility] Last Admin: 06/16/22 07:33 Dose: Not Given Gabapentin (Gabapentin 300 Mg Capsule) 300 mg PO BID [facility] Last Admin: 06/16/22 08:01 Dose: 300 mg Hydrocortisone (Hydrocortisone 2.5 % Rectal Cr 30 Gm Tube) 1 appl MO BID PRN PRN Reason: Hemorrhoids Last Admin: 06/12/22 20:00 Dose: 1 appl Hydroxyzine HCl (Hydroxyzine Hcl 25 Mg Tablet) 25 mg PO Q6H PRN PRN Reason: Anxiety Last Admin: 06/15/22 20:20 Dose: 25 mg Lisinopril (Lisinopril 2.5 Mg Tablet) 2.5 mg PO DAILY [facility]; Protocol Last Admin: 06/16/22 08:01 Dose: 2.5 mg Magnesium Hydroxide (Milk Of Magnesia 30 Ml Oral.Susp) 30 ml PO DAILY PRN PRN Reason: Constipation Memantine (Memantine Hcl 10 Mg Tablet) 10 mg PO BID [facility] Last Admin: 06/16/22 08:01 Dose: 10 mg Mirtazapine (Mirtazapine 7.5 Mg Tablet) 7.5 mg PO BEDTIME [facility] Last Admin: 06/15/22 20:20 Dose: 7.5 mg Olanzapine (Olanzapine 2.5 Mg Tablet) 2.5 mg PO TID PRN PRN Reason: Agitation Olanzapine (Olanzapine 5 Mg Tablet) 5 mg PO BEDTIME [facility] Last Admin: 06/15/22 20:20 Dose: 5 mg Omeprazole (Omeprazole 20 Mg Capsule.Dr) 20 mg PO DAILY@0630 [facility] Last Admin: 06/16/22 06:04 Dose: 20 mg Trazodone HCl (Trazodone Hcl 50 Mg Tablet) 50 mg PO BEDTIME PRN PRN Reason: Insomnia Last Admin: 06/12/22 21:13 Dose: 50 mg Allergies Allergies Allergy/AdvReac Type Severity Reaction Status Date / Time Unable to Assess Allergy Unverified 06/06/22 13:17 Assessment & Plan Assessment & Plan (1) Internal hordeolum of left eye: Status: Acute Code(s): H00.026 - Hordeolum internum left eye, unspecified eyelid Plan The patient is an elderly female, mother of adult children, relocated from [place] to [place] 3 months ago with a history of dementia that has worsen it. She was brought from the community since there were adult protective services involved since the patient goes for walks and she gets lost. Plan 1. Continue with same treatment. 2. Start working with discharge planning since the daughter wants to take her back and apparently there is no evidence of abuse 06/15: Continue current regimen and plans 06/16: Continue current plans and regimen I spent minutes with the patient and/or on the patient floor today, greater than?50% of which was spent counseling/coordinating care. Reason for contiued inpatient stay Substantial Risk for: med/psych decompensation
[2022-06-16] MEDS: Erythromycin Base 0.5% Oph Oin 1 GM TUBE 1 CM EYE-LEFT ×4 (08:32→19:59)
[2022-06-16] MEDS: Acetaminophen 325 MG TABLET 650 MG PO ×2 (10:50→19:56)
[2022-06-16 18:00] VITALS: BP 167/70; PULSE 68; RESP 14; TEMP 36.8; O2SAT 97
[2022-06-16] MEDS: Donepezil HCl 5 MG TABLET PO (19:57)
[2022-06-16] MEDS: Atorvastatin Calcium 80 MG TABLET PO (19:57)
[2022-06-16] MEDS: Mirtazapine 7.5 MG TABLET PO (19:58)
[2022-06-16] MEDS: OLANZapine 5 MG TABLET PO (19:58)
[2022-06-16] MEDS: traZODone HCL 50 MG TABLET PO (21:57)
[2022-06-16] MEDS: hydrOXYzine HCL 25 MG TABLET PO (21:57)
[2022-06-17 06:00] VITALS: BP 114/76; PULSE 60; RESP 17; TEMP 36.5; O2SAT 96
[2022-06-17] MEDS: Memantine HCl 10 MG TABLET PO ×2 (09:40→20:20)
[2022-06-17] MEDS: carvediloL 6.25 MG TABLET PO ×2 (09:40→20:21)
[2022-06-17] MEDS: Gabapentin 300 MG CAPSULE PO ×2 (09:40→20:21)
[2022-06-17] MEDS: Empagliflozin 10 MG TABLET PO (09:40)
[2022-06-17] MEDS: Erythromycin Base 0.5% Oph Oin 1 GM TUBE 1 CM EYE-LEFT ×4 (09:41→20:24)
[2022-06-17] MEDS: lisinopriL 2.5 MG TABLET PO (09:41)
[2022-06-17] MEDS: Omeprazole 20 MG CAPSULE.DR PO (09:41)
[2022-06-17] MEDS: Acetaminophen 325 MG TABLET 650 MG PO (10:37)
--- NOTE | 2022-06-17 13:23 | HO.PSYCHPN ---
Subjective Subjective Date of Service: 06/17/22 Reason For Visit: Adjustment Disorders Subjective Notes: Conditional Voluntary Interim History: The nursing staff reported the patient slept well she complained of back pain. She has been cooperative and pleasant. The occupational therapist reported that her [place] was 14/30. The social science instructor talked with the family and they are willing to take her back so we will plan for discharge tomorrow. On interview the patient denies new symptoms no side effects with the addition of Aricept. Mental Status Exam Mental Status Exam Patient Appearance: Well Grooomed Patient Orientation: Person and Situation Level of Consciousness: Awake Patient Behavior: Cooperative Mood Description: Constricted Affect Description: Labile Patient Cognition Impaired: Yes Ability to Follow Directions: Good Speech Pattern: Clear Memory Description: Intact Hallucinations: None Delusions: Not Present Thought Process: Distracted Thought Content: positive for Circumstantial Judgement: Fair Diagnostics Vital Signs (24Hr): Vital Signs - 24 hr 06/16/22 18:00 06/17/22 06:00 Temperature 98.3 F 97.7 F Pulse Rate 68 60 Respiratory Rate 14 17 Blood Pressure 167/70 H 114/76 Pulse Oximetry 97 96 Oxygen Delivery Method Room Air Room Air BMI result Body Mass Index 26.9 Labs Results: 06/07/22 08:01 06/13/22 19:02 Imaging Radiology Impressions: ITS Impressions Head CT 06/07/22 11:17 IMPRESSION: 1. No evidence of acute intracranial hemorrhage or edematous territorial infarction. 2. Mild underlying microangiopathy and generalized cerebral volume loss. Venous Duplex 06/13/22 19:56 IMPRESSION: No DVT demonstrated in the bilateral lower extremities. Medications Medications Current Medications Acetaminophen (Acetaminophen 325 Mg Tablet) 650 mg PO Q6H PRN PRN Reason: Headache/Pain Mild Scale (1-3) Last Admin: 06/17/22 10:37 Dose: 650 mg Al Hydroxide/Mg Hydroxide (Magnesium Hydrox/Alum Hydrox 30 Ml Oral.Susp) 30 ml PO Q6H PRN PRN Reason: Heartburn/Nausea Last Admin: 06/08/22 22:13 Dose: 30 ml Atorvastatin Calcium (Atorvastatin Calcium 80 Mg Tablet) 80 mg PO BEDTIME [facility] Last Admin: 06/16/22 19:57 Dose: 80 mg Carvedilol (Carvedilol 6.25 Mg Tablet) 6.25 mg PO BID [facility] Last Admin: 06/17/22 09:40 Dose: 6.25 mg Donepezil HCl (Donepezil Hcl 10 Mg Tablet) 10 mg PO BEDTIME [facility] Empagliflozin (Empagliflozin 10 Mg Tablet) 10 mg PO DAILY [facility] Last Admin: 06/17/22 09:40 Dose: 10 mg Erythromycin (Erythromycin Base 0.5% Oph Oin 1 Gm Tube) 1 cm EYE-LEFT QID [facility] Last Admin: 06/17/22 13:04 Dose: 1 cm Gabapentin (Gabapentin 300 Mg Capsule) 300 mg PO BID [facility] Last Admin: 06/17/22 09:40 Dose: 300 mg Hydrocortisone (Hydrocortisone 2.5 % Rectal Cr 30 Gm Tube) 1 appl RI BID PRN PRN Reason: Hemorrhoids Last Admin: 06/12/22 20:00 Dose: 1 appl Hydroxyzine HCl (Hydroxyzine Hcl 25 Mg Tablet) 25 mg PO Q6H PRN PRN Reason: Anxiety Last Admin: 06/16/22 21:57 Dose: 25 mg Lisinopril (Lisinopril 2.5 Mg Tablet) 2.5 mg PO DAILY [facility]; Protocol Last Admin: 06/17/22 09:41 Dose: 2.5 mg Magnesium Hydroxide (Milk Of Magnesia 30 Ml Oral.Susp) 30 ml PO DAILY PRN PRN Reason: Constipation Memantine (Memantine Hcl 10 Mg Tablet) 10 mg PO BID [facility] Last Admin: 06/17/22 09:40 Dose: 10 mg Mirtazapine (Mirtazapine 7.5 Mg Tablet) 7.5 mg PO BEDTIME [facility] Last Admin: 06/16/22 19:58 Dose: 7.5 mg Olanzapine (Olanzapine 2.5 Mg Tablet) 2.5 mg PO TID PRN PRN Reason: Agitation Olanzapine (Olanzapine 5 Mg Tablet) 5 mg PO BEDTIME [facility] Last Admin: 06/16/22 19:58 Dose: 5 mg Omeprazole (Omeprazole 20 Mg Capsule.Dr) 20 mg PO DAILY@0630 [facility] Last Admin: 06/17/22 09:41 Dose: 20 mg Trazodone HCl (Trazodone Hcl 50 Mg Tablet) 50 mg PO BEDTIME PRN PRN Reason: Insomnia Last Admin: 06/16/22 21:57 Dose: 50 mg Allergies Allergies Allergy/AdvReac Type Severity Reaction Status Date / Time Unable to Assess Allergy Unverified 06/06/22 13:17 Assessment & Plan Assessment & Plan (1) Internal hordeolum of left eye: Status: Acute Code(s): H00.026 - Hordeolum internum left eye, unspecified eyelid Plan The patient is an elderly female, mother of adult children, relocated from [place] to [place] 3 months ago with a history of dementia that has worsen it. She was brought from the community since there were adult protective services involved since the patient goes for walks and she gets lost. Plan 1. Continue with same treatment. 2. Start working with discharge planning since the daughter wants to take her back and apparently there is no evidence of abuse 3. Increase Aricept to 10 mg p.o. q.h.s. I spent ___20___ minutes with the patient and/or on the patient floor today, greater than?50% of which was spent counseling/coordinating care. Reason for contiued inpatient stay Substantial Risk for: inability to function, rapid decompensation and med/psych decompensation
[2022-06-17 18:00] VITALS: BP 163/69; PULSE 64; RESP 16; TEMP 36.5; O2SAT 96
[2022-06-17] MEDS: Milk of Magnesia 30 ML ORAL.SUSP PO (18:02)
[2022-06-17] MEDS: Mirtazapine 7.5 MG TABLET PO (20:19)
[2022-06-17] MEDS: Donepezil HCl 10 MG TABLET PO (20:20)
[2022-06-17] MEDS: Atorvastatin Calcium 80 MG TABLET PO (20:20)
[2022-06-17] MEDS: OLANZapine 5 MG TABLET PO (20:20)
[2022-06-17] MEDS: traZODone HCL 50 MG TABLET PO (20:21)
[2022-06-17] MEDS: hydrOXYzine HCL 25 MG TABLET PO (20:21)
[2022-06-18] MEDS: Acetaminophen 325 MG TABLET 650 MG PO (04:38)
[2022-06-18] MEDS: Omeprazole 20 MG CAPSULE.DR PO (06:49)
--- NOTE | 2022-06-18 07:47 | PM.PSYDC ---
DS: Providers Provider Date of Service: 06/18/22 Date of admission: 06/06/22 12:48 Date of discharge: 06/18/22 Primary care physician: Unknown Physician Consults: 06/06/22 13:17 Consult to Hospitalist Routine Consulting Provider: Hospitalist Reason For Exam: Direct admission from [facility] 06/11/22 15:31 Consult to Hospitalist Stat Consulting Provider: Hospitalist Reason For Exam: painful swollen upper eyelid DS: Diagnosis Discharge Diagnosis (1) Internal hordeolum of left eye: Status: Acute DS: Medications Discharge Medications Home Medications: Home Medications Medication Instructions Recorded Confirmed Vicodin ES 1 tab PO PRN Pain 06/06/22 atorvastatin 80 mg tablet 80 mg PO BEDTIME 06/06/22 06/06/22 carvedilol 6.25 mg PO BID 06/06/22 06/06/22 dapagliflozin 10 mg tablet 10 mg PO DAILY 06/06/22 06/06/22 (Farxiga) esomeprazole mag-glycerin 06/06/22 gabapentin 300 mg PO BID 06/06/22 06/06/22 lisinopril 2.5 mg tablet 2.5 mg PO DAILY 06/06/22 06/06/22 memantine 10 mg tablet 10 mg PO QPM 06/06/22 06/06/22 olanzapine 2.5 tab PO BEDTIME 06/06/22 06/06/22 olanzapine 2.5 mg tablet 2.5 mg PO TID PRN Agitation 06/06/22 06/06/22 semaglutide 1 mg/dose (4 mg/3 mL) 1 mg subcut QWEEK 06/06/22 06/06/22 subcutaneous pen injector (Ozempic) Mental Status Exam Mental Status Exam Patient Appearance: Well Grooomed and Appropriate Patient Orientation: Person and Situation Level of Consciousness: Awake Patient Behavior: Appropriate Mood Description: Constricted Affect Description: Labile Patient Cognition Impaired: Yes Ability to Follow Directions: Fair Speech Pattern: Clear Hallucinations: None Delusions: Not Present Thought Process: Distracted Thought Content: positive for Circumstantial Judgement: Fair Data Data Completed and Pending Completed studies during hospitalization [Text1]: 06/13/22 06/13/22 19:02 19:02 Sodium 140 Potassium 4.7 Chloride 104 Carbon Dioxide 24 Anion Gap 17 BUN 32 H Creatinine 1.66 H Estim Creat Clear Calc 26.4 Estimated GFR 30 Random Glucose 316 H Calcium 9.0 B-Natriuretic Peptide 59 Imaging Diagnostic Imaging Impressions Head CT 06/07/22 11:17 IMPRESSION: 1. No evidence of acute intracranial hemorrhage or edematous territorial infarction. 2. Mild underlying microangiopathy and generalized cerebral volume loss. Venous Duplex 06/13/22 19:56 IMPRESSION: No DVT demonstrated in the bilateral lower extremities. DS: Summary Hospital Course Hospital Course: the patient was initially admitted to the emergency room since adult protective Services were called and she was wandering the streets confused. The patient recently relocated from [place] to [place] and apparently she had been having cognitive problems. On admission, the patient reported that she had a contentious relation with her daughter who is her family here in [place] and she denied being lost are wondering the neighborhood. Please see the HPI note on admission for further details. On admission, the patient also reported dysphoria and other depressive symptoms and we start a low dose of Remeron. Later on, we had a family meeting with her daughter disclosed that she also has soft psychotic symptoms such as paranoia and delusions. Restart Zyprexa titrated up to 5 mg with for improvement. We did a [place] test and she scored very low 14/30 but her ACL was a little higher than expected. the patient was already started on Namenda but we increase it to 10 mg p.o. b.i.d. and we start Aricept titrated up to 10 mg p.o. q.h.s. without any side effects. The patient was future oriented, there were no evidence of suicidal or homicidal thoughts no evidence of psychosis and her daughter was willing to take her back. We contact adult protective services and explained the situation. Discharge planning was discussed Time spent discussing smoking cessation with patient: 3 to 10 minutes Status at Discharge Cognitive/behavioral status at discharge: MOCA 14/30 Functional status at discharge: independent ambulation Overall status at discharge: patient is back to baseline Time Spent with Patient Time attestation: Total time spent providing and/or coordinating discharge services: Time spent: Less than 30 minutes Discharge Plan Discharge Anticipated Discharge Date/Time: 06/18/22 10:00 Patient Disposition: Home, Self-Care Discharge Diagnosis: MAJOR DEPRESSIVE DISORDER. DEMENTIA Referrals: Lb Lewis NP [facility] [Other] - 06/19/22 9:30 am ([facility] appointment scheduled by daughter for 06/19/22 at 9:30am. ) [facility] [Other] - 3-5 Days (Your caser up Camila Frazier will schedule home visit following discharge. 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 ) [facility] [Other] - 07/05/22 3:00 pm [facility] [Other] - 06/25/22 8:40 am (Your next appointment with Primary Care is scheduled for 06/25/22 at 8:40am. ) [facility] [Other] - 06/21/22 11:00 am (A referral was made for [facility]. You and our daughter are scheduled for a tour of the program this Friday at 11am. ) Discharge Medications: New acetaminophen 325 mg Tablet 650 mg PO Q6H PRN (Reason: Headache/Pain Mild Scale (1-3)) 30 Days Qty: 60 0RF trazodone 50 mg Tablet 50 mg PO BEDTIME PRN (Reason: Insomnia) 30 Days Qty: 30 0RF donepezil 10 mg Tablet 10 mg PO BEDTIME 30 Days Qty: 30 0RF olanzapine 5 mg Tablet 5 mg PO BEDTIME 30 Days Qty: 30 0RF hydrocortisone [Proctozone-HC] 2.5 % Cream With Perineal Applicator 1 appl MD BID PRN (Reason: Hemorrhoids) 30 Days Qty: 1 0RF erythromycin 5 mg/gram (0.5 %) Ointment 1 cm ophthalmic-Left QID 30 Days Qty: 1 0RF omeprazole 20 mg Capsule,Delayed Release(Dr/Ec) 20 mg PO DAILY@0630 30 Days Qty: 30 0RF memantine [Namenda] 10 mg Tablet 10 mg PO BID 30 Days Qty: 60 0RF mirtazapine 7.5 mg Tablet 7.5 mg PO BEDTIME 30 Days Qty: 30 0RF Continued atorvastatin 80 mg Tablet 80 mg PO BEDTIME 30 Days Qty: 30 0RF lisinopril 2.5 mg Tablet 2.5 mg PO DAILY 30 Days Qty: 30 0RF Farxiga 10 mg Tablet 10 mg PO DAILY 30 Days Qty: 30 0RF Ozempic 1 mg/dose (4 mg/3 mL) Pen Injector 1 mg SUBCUT QWEEK 30 Days Qty: 3.75 0RF carvedilol 6.25 mg PO BID 30 Days Qty: 60 0RF gabapentin 300 mg PO BID 30 Days Qty: 60 0RF Discontinued olanzapine 2.5 mg Tablet 2.5 mg PO TID PRN (Reason: Agitation) memantine 10 mg Tablet 10 mg PO QPM Vicodin ES 1 tab PO PRN (Reason: Pain) esomeprazole mag-glycerin olanzapine 2.5 tab PO BEDTIME Discharge Orders: Discharge Order (Routine); Ordered 06/18/22 Ordered By: Stevan Soriano Diet: Advance to usual diet Activity on Discharge: As tolerated Stand Alone Forms: Patient Portal Discharge page Care Plan Goals: care plan goals achieved in this admission Health Concerns: continue treatment by primary care physician Plan of Treatment: continue medication management and therapy as an outpatient Assessment: the patient is an elderly female with a history of dementia and psychosis recently relocated from [place], admitted for exacerbation of psychosis and dysphoria. At this moment she is safe in the community no safety concerns
[2022-06-18] MEDS: lisinopriL 2.5 MG TABLET PO (08:04)
[2022-06-18] MEDS: Memantine HCl 10 MG TABLET PO (08:04)
[2022-06-18] MEDS: carvediloL 6.25 MG TABLET PO (08:04)
[2022-06-18] MEDS: Empagliflozin 10 MG TABLET PO (08:04)
[2022-06-18] MEDS: Erythromycin Base 0.5% Oph Oin 1 GM TUBE 1 CM EYE-LEFT (08:04)
[2022-06-18] MEDS: Gabapentin 300 MG CAPSULE PO (08:04)
--- NOTE | 2022-06-18 14:50 | PC.NURSE ---
Patient alert and oriented x4. Expresses readiness for discharge. All d/c instructions, medications, f/u appointments reviewed with patient. Patient verbalized understanding. Denies SI. Escorted to hospital by staff and daughter.
== END 2022-06-18 13:55 | disposition home or self-care (01) | DRG 881 ==
PROVIDERS: Registered Nurse; Admitting Provider Psychiatry & Neurology Psychiatry; Visit Provider Psychiatry & Neurology Psychiatry
DX: F32.9 Major depressive disorder, single episode, unspecified (principal); I12.9 Hypertensive chronic kidney disease with stage 1 through stage 4 chronic kidney disease, or unspecified chronic kidney disease; H00.026 Hordeolum internum left eye, unspecified eyelid; H10.9 Unspecified conjunctivitis; F03.90 Unspecified dementia, unspecified severity, without behavioral disturbance, psychotic disturbance, mood disturbance, and anxiety; N18.30 Chronic kidney disease, stage 3 unspecified; E11.22 Type 2 diabetes mellitus with diabetic chronic kidney disease; F17.210 Nicotine dependence, cigarettes, uncomplicated; Z71.6 Tobacco abuse counseling; G89.28 Other chronic postprocedural pain; Z91.83 Wandering in diseases classified elsewhere; Z79.899 Other long term (current) drug therapy
CPT/HCPCS: 36415; 70450; 80048; 80053; 80061; 82607; 82746; 83036; 83880; 84443; 85025; 93970